=== PATIENT | female | born 1965 ===

== ENCOUNTER 2021-05-15 13:23 | Inpatient (IN) | payer OTHER ==
[2021-05-15] MEDS ORDERED: Sodium Chloride 0.9% 10 ML Syringe FLUSH PRN ×2 (13:35→13:36)
[2021-05-15] MEDS ORDERED: Sodium Chloride 0.9% 2.5 ML Syringe FLUSH PRN ×2 (13:35→13:36)
--- NOTE | 2021-05-15 13:37 | EDM.PDOC ---
ED HPI GENERAL MEDICAL PROBLEM - General Chief Complaint: Respiratory Problem Stated Complaint: HAVING TROUBLE BREATHING Time Seen by Provider: 05/15/21 13:36 - History of Present Illness INITIAL COMMENTS - FREE TEXT/NARRATIVE: History of present illness: [] This is patient's 11 days of illness. She has shortness of breath fever and feels weak. She has body aches. She has no vomiting or diarrhea. She has no history of respiratory trouble in the past. The patient developed symptoms on 04 May 2021. Earlier this week she had a Covid positive. She is not vaccinated. She did not receive monoclonal antibodies. Review of systems: As per history of present illness and below otherwise all systems reviewed and negative. Past medical history: As per history of present illness and as reviewed below otherwise nonc ontributory. Surgical history: As per history of present illness and as reviewed below otherwise noncontributory. Social history: No reported history of drug or alcohol abuse. Family history: As per history of present illness and as reviewed below otherwise noncontributory. Physical exam: Constitutional - well developed, well-nourished and in no acute distress HEENT - normocephalic, no evidence of trauma - external nose and mouth normal - no mass in neck and no JVD - mucosae moist EYES - full EOM, PERRL, no icterus - no evidence of inflammation, injection, or drainage Respiratory -oxygen saturation 77% on room [id number] respiratory distress, equal bilateral expansion, lungs rales and rhonchi throughout. Diminished breath sounds. Cardiovascular - Regular Rhythm with S1 and S2 appreciated and no murmur, gallop or rub. GI - abdomen soft without distension or organomegaly - normal bowel sounds - no guard or rebound Musculoskeletal no gross deformity of long bones or joints - no tenderness, swelling or edema Neurologic - Alert and oriented times four - CN II-XII grossly intact - motor sensory and coordination symmetrically normal Psychiatric - appropriate mood and affect with normal thought content Hematologic - No petechiae or purpura - mucosa appropriate color and sclera not pale - normal nail bed color and refill Integument - no rash or evidence of trauma - normal turgor Diagnostics: [] Therapeutics: [] Impression: [] Plan: [] Definitive disposition and diagnosis as appropriate pending reevaluation and review of above. - Related Data Allergies Allergy/AdvReac Type Severity Reaction Status Date / Time No Known Allergies Allergy Verified 05/15/21 13:40 Home Meds: Home Meds ARIPiprazole [Abilify] 05/15/21 [History] Albuterol Sulfate [Proair Hfa] 8.5 gm IH 05/15/21 [History] clonazePAM [Clonazepam] 1 mg PO 05/15/21 [History] ED ROS GENERAL - Review of Systems Review Of Systems: Comprehensive ROS is negative, except as noted in HPI. ED EXAM, GENERAL - Physical Exam Exam: See Below Free Text/Narrative:: My physical exam is in the HPI #1 Interpretation EKG Interpretation Comments: EKG performed 05/15/2021 at 1:27 PM shows a sinus tachycardia with a heart rate of 119 and SD interval of 178 QT duration 451 [place] XX 8. She has minimal ST depression and some ventricular premature complexes. Impression no acute injury Course - Vital Signs Last Recorded V/S: Last Vital Signs Temp 36.8 C 05/15/21 13:34 Pulse 100 05/15/21 14:44 Resp 24 H 05/15/21 14:44 BP 117/60 05/15/21 14:44 Pulse Ox 96 05/15/21 14:44 - Orders/Labs/Meds Orders: Active Orders 24 hr Category Date Time Status Admission Status [Patient Status] [ADT] Stat ADT 05/15/21 15:13 Ordered Cardiac Monitoring [RC] . DIRECTED Care 05/15/21 13:36 Active Cardiac Monitoring [RC] . DIRECTED Care 05/15/21 15:13 Ordered Oxygen Therapy, ED [RC] ASDIRECTED Care 05/15/21 13:36 Active RT Aerosol Therapy [RC] ASDIRECTED Care 05/15/21 13:48 Active BILIRUBIN DIRECT [CHEM] Stat Lab 05/15/21 15:13 Ordered CULTURE BLOOD [BC] Stat Lab 05/15/21 13:35 Received CULTURE BLOOD [BC] Stat Lab 05/15/21 13:53 Received Remdesivir 100 mg Med 05/16/21 15:15 Ordered Sodium Chloride 0.9% [Normal Saline AdvBag] 100 ml IV Q24H Sodium Chloride 0.9% [Saline Flush] Med 05/15/21 13:35 Active 10 ml FLUSH ASDIRECTED PRN Sodium Chloride 0.9% [Saline Flush] Med 05/15/21 13:36 Active 10 ml FLUSH ASDIRECTED PRN Sodium Chloride 0.9% [Saline Flush] Med 05/15/21 13:35 Active 2.5 ml FLUSH ASDIRECTED PRN Sodium Chloride 0.9% [Saline Flush] Med 05/15/21 13:36 Active 2.5 ml FLUSH ASDIRECTED PRN dexAMETHasone Med 05/16/21 09:00 Ordered 6 mg PO DAILY Blood Culture x2 Reflex Set [OM.PC] Stat Oth 05/15/21 13:35 Ordered Saline Lock Insert [OM.PC] Stat Ot 05/15/21 13:35 Ordered Saline Lock Insert [OM.PC] Stat Ot 05/15/21 13:36 Ordered Medication Orders Dexamethasone (Dexamethasone 4 Mg Tab) 6 mg PO DAILY SANJU Remdesivir 100 mg/ Sodium (Chloride) 100 mls @ 100 mls/hr IV Q24H SANJU Stop: 05/19/21 16:14 Sodium Chloride (Sodium Chloride 0.9% 10 Ml Syringe) 10 ml FLUSH ASDIRECTED PRN PRN Reason: Keep Vein Open Last Admin: 05/15/21 14:00 Dose: 10 ml Documented by: TIMOTHY Sodium Chloride (Sodium Chloride 0.9% 2.5 Ml Syringe) 2.5 ml FLUSH ASDIRECTED PRN PRN Reason: Keep Vein Open Last Admin: 05/15/21 14:00 Dose: 2.5 ml Documented by: TIMOTHY Sodium Chloride (Sodium Chloride 0.9% 10 Ml Syringe) 10 ml FLUSH ASDIRECTED PRN PRN Reason: Keep Vein Open Last Admin: 05/15/21 14:01 Dose: 10 ml Documented by: TIMOTHY Sodium Chloride (Sodium Chloride 0.9% 2.5 Ml Syringe) 2.5 ml FLUSH ASDIRECTED PRN PRN Reason: Keep Vein Open Last Admin: 05/15/21 14:01 Dose: 2.5 ml Documented by: TIMOTHY Labs: Laboratory Tests 05/15/21 05/15/21 05/15/21 Range/Units 13:30 13:30 13:30 WBC 14.64 H (4.0-11.0) K/uL RBC 5.97 H (4.30-5.90) M/uL Hgb 12.8 (12.0-16.0) g/dL Hct 41.9 (36.0-46.0) % MCV 70.2 L (80.0-98.0) fL MCH 21.4 L (27.0-32.0) pg MCHC 30.5 L (31.0-37.0) g/dL RDW Std Deviation 49.5 (28.0-62.0) fl RDW Coeff of Erma 20 H (11.0-15.0) % Plt Count 440 H (150-400) K/uL MPV 10.20 (7.40-12.00) fL Neut % (Auto) 77.5 (48.0-80.0) % Lymph % (Auto) 18.7 (16.0-40.0) % [place] % (Auto) 3.6 (0.0-15.0) % Eos % (Auto) 0.0 (0.0-7.0) % Baso % (Auto) 0.2 (0.0-1.5) % Neut # (Auto) 11.3 H (1.4-5.7) K/uL Lymph # (Auto) 2.7 H (0.6-2.4) K/uL [place] # (Auto) 0.5 (0.0-0.8) K/uL Eos # (Auto) 0.0 (0.0-0.7) K/uL Baso # (Auto) 0.0 (0.0-0.1) K/uL Nucleated RBC % 0.0 /100WBC Nucleated RBCs # 0 K/uL ABG pH (7.35-7.45) ABG pCO2 (35-45) mmHG ABG pO2 (80-105) mmHG ABG HCO3 (22-26) mEq/L ABG Total CO2 (23-27) mmol/L ABG Base Excess (-2.0-3.0) Sodium 137 (136-145) mmol/L Potassium 4.5 (3.5-5.1) mmol/L Chloride 98 (98-107) mmol/L Carbon Dioxide 26.7 (21.0-32.0) mmol/L BUN 24 H (7.0-18.0) mg/dL Creatinine 1.0 (0.6-1.0) mg/dL Est Cr Clr Drug Dosing 9.00 mL/min Estimated GFR (MDRD) 57.4 ml/min Glucose 86 (74-106) mg/dL Lactic Acid 1.1 (0.4-2.0) mmol/L Calcium 10.0 (8.5-10.1) mg/dL Magnesium 2.4 (1.8-2.4) mg/dL Total Bilirubin 0.3 (0.2-1.0) mg/dL AST 76 H (15-37) IU/L ALT 61 (14-63) IU/L Alkaline Phosphatase 193 H (46-116) U/L Troponin I <0.050 (0.000-0.056) ng/mL Total Protein 8.5 H (6.4-8.2) g/dL Albumin 3.5 (3.4-5.0) g/dL Globulin 5.0 H (2.6-4.0) g/dL Albumin/Globulin Ratio 0.7 L (0.9-1.6) Influenza Type A RNA (NEGATIVE) Influenza Type B RNA (NEGATIVE) SARS-CoV-2 RNA (IKE) (NEGATIVE) 05/15/21 05/15/21 Range/Units 14:06 14:25 WBC (4.0-11.0) K/uL RBC (4.30-5.90) M/uL Hgb (12.0-16.0) g/dL Hct (36.0-46.0) % MCV (80.0-98.0) fL MCH (27.0-32.0) pg MCHC (31.0-37.0) g/dL RDW Std Deviation (28.0-62.0) fl RDW Coeff of Erma (11.0-15.0) % Plt Count (150-400) K/uL MPV (7.40-12.00) fL Neut % (Auto) (48.0-80.0) % Lymph % (Auto) (16.0-40.0) % [place] % (Auto) (0.0-15.0) % Eos % (Auto) (0.0-7.0) % Baso % (Auto) (0.0-1.5) % Neut # (Auto) (1.4-5.7) K/uL Lymph # (Auto) (0.6-2.4) K/uL [place] # (Auto) (0.0-0.8) K/uL Eos # (Auto) (0.0-0.7) K/uL Baso # (Auto) (0.0-0.1) K/uL Nucleated RBC % /100WBC Nucleated RBCs # K/uL ABG pH 7.46 H (7.35-7.45) ABG pCO2 37 (35-45) mmHG ABG pO2 74 L (80-105) mmHG ABG HCO3 27 H (22-26) mEq/L ABG Total CO2 24.1 (23-27) mmol/L ABG Base Excess 2.7 (-2.0-3.0) Sodium (136-145) mmol/L Potassium (3.5-5.1) mmol/L Chloride (98-107) mmol/L Carbon Dioxide (21.0-32.0) mmol/L BUN (7.0-18.0) mg/dL Creatinine (0.6-1.0) mg/dL Est Cr Clr Drug Dosing mL/min Estimated GFR (MDRD) ml/min Glucose (74-106) mg/dL Lactic Acid (0.4-2.0) mmol/L Calcium (8.5-10.1) mg/dL Magnesium (1.8-2.4) mg/dL Total Bilirubin (0.2-1.0) mg/dL AST (15-37) IU/L ALT (14-63) IU/L Alkaline Phosphatase (46-116) U/L Troponin I (0.000-0.056) ng/mL Total Protein (6.4-8.2) g/dL Albumin (3.4-5.0) g/dL Globulin (2.6-4.0) g/dL Albumin/Globulin Ratio (0.9-1.6) Influenza Type A RNA NEGATIVE (NEGATIVE) Influenza Type B RNA NEGATIVE (NEGATIVE) SARS-CoV-2 RNA (IKE) POSITIVE H (NEGATIVE) Meds: Medications Generic Name Dose Route Start Last Admin Trade Name Freq PRN Reason Stop Dose Admin Dexamethasone 6 mg 05/16/21 09:00 Dexamethasone 4 Mg Tab PO DAILY SANJU Remdesivir 100 mg/ Sodium 100 mls @ 100 mls/hr 05/16/21 15:15 Chloride IV 05/19/21 16:14 Q24H SANJU Sodium Chloride 10 ml 05/15/21 13:35 05/15/21 14:00 Sodium Chloride 0.9% 10 Ml Syringe FLUSH 10 ml ASDIRECTED PRN Administration Keep Vein Open Sodium Chloride 2.5 ml 05/15/21 13:35 05/15/21 14:00 Sodium Chloride 0.9% 2.5 Ml Syringe FLUSH 2.5 ml ASDIRECTED PRN Administration Keep Vein Open Sodium Chloride 10 ml 05/15/21 13:36 05/15/21 14:01 Sodium Chloride 0.9% 10 Ml Syringe FLUSH 10 ml ASDIRECTED PRN Administration Keep Vein Open Sodium Chloride 2.5 ml 05/15/21 13:36 05/15/21 14:01 Sodium Chloride 0.9% 2.5 Ml Syringe FLUSH 2.5 ml ASDIRECTED PRN Administration Keep Vein Open Discontinued Medications Generic Name Dose Route Start Last Admin Trade Name Freq PRN Reason Stop Dose Admin Albuterol/Ipratropium 3 ml 05/15/21 13:48 05/15/21 13:53 Albuterol/Ipratropium 3.0-0.5 Mg/3 Ml Neb Soln NEB 05/15/21 13:49 3 ml ONETIME ONE Administration Remdesivir 200 mg/ Sodium 250 mls @ 250 mls/hr 05/15/21 15:12 Chloride IV 05/15/21 15:13 ONETIME ONE Remdesivir 200 mg/ Sodium 250 mls @ 250 mls/hr 05/15/21 15:12 Chloride IV 05/15/21 15:13 ONETIME ONE Methylprednisolone Sodium Succinate 125 mg 05/15/21 13:48 05/15/21 13:53 Methylprednisolone Sodium Succinate 125 Mg/2 Ml Sdv IVPUSH 05/15/21 13:49 125 mg ONETIME ONE Administration - Re-Assessments/Exams Free Text/Narrative Re-Assessment/Exam: 05/15/21 13:56 Patient has an oxygen saturation of 94 to 95% on high flow nasal cannula at 50 psi, 50% FiO2, 31 degree temperature 05/15/21 15:14 Patient was stable but not improved much. She is tolerating high flow nasal cannula and her saturations are good. Discussed with Dr. German Estrella and admitted. Due to a high probability of clinically significant, life threatening deterioration, the patient required my highest level of preparedness to intervene emergently and I personally spent this critical care time directly and personally managing the patient. This critical care time included obtaining a history; examining the patient; pulse oximetry; ordering and review of studies; arranging urgent treatment with development of a management plan; evaluation of patient's response to treatment; frequent reassessment; and, discussions with other providers. This critical care time was performed to assess and manage the high probability of imminent, life-threatening deterioration that could result in multi-organ failure. It was exclusive of separately billable procedures and treating other patients and teaching time. 45 minutes Departure - Departure Time of Disposition: 15:15 Disposition: Admitted As Inpatient 66 Condition: Fair Clinical Impression: Pneumonia due to COVID-19 virus, Respiratory failure with hypoxia - Discharge Information Forms: ED Department Discharge Sepsis Event Note (ED) - Focused Exam Vital Signs: Vital Signs Temp Pulse Resp BP Pulse Ox 05/15/21 14:44 100 24 H 117/60 96 05/15/21 13:34 36.8 C 111 H 26 H 130/59 L 77 L - My Orders Last 24 Hours: My Active Orders 05/15/21 13:48 RT Aerosol Therapy [RC] ASDIRECTED 05/15/21 15:13 Admission Status [Patient Status] [ADT] Stat Cardiac Monitoring [RC] . DIRECTED BILIRUBIN DIRECT [CHEM] Stat - Assessment/Plan Last 24 Hours: My Active Orders 05/15/21 13:48 RT Aerosol Therapy [RC] ASDIRECTED 05/15/21 15:13 Admission Status [Patient Status] [ADT] Stat Cardiac Monitoring [RC] . DIRECTED BILIRUBIN DIRECT [CHEM] Stat
[2021-05-15] MEDS ORDERED: methylPREDNISolone Sodium Succinate 125 MG/2 ML SDV IVPUSH ONE (13:48)
[2021-05-15] MEDS ORDERED: Albuterol/Ipratropium 3.0-0.5 MG/3 ML Neb Soln NEB ONE (13:48)
[2021-05-15 14:15] LABS: BLOOD UREA NITROGEN,BUN 24 mg/dL (7.0-18.0); CARBON DIOXIDE,CO2 26.7 mmol/L (21.0-32.0); CHLORIDE,CL 98 mmol/L (98-107); GLUCOSE RANDOM 86 mg/dL (74-106); POTASSIUM,K 4.5 mmol/L (3.5-5.1); SODIUM,NA 137 mmol/L (136-145)
--- NOTE | 2021-05-15 14:33 | CR ---
Indication: Fever Technique: Portable chest Comparison: No comparison Findings: Low lung volumes. Normal cardiac mediastinal silhouette. Bilateral interstitial opacities could an represent infectious or inflammatory process to include atypical infections. No effusion. No pneumothorax. Dictated by Farhana Hammond MD @ 05/15/2021 2:31:11 PM (Electronically Signed)
[2021-05-15 14:55] LABS: CORONAVIRUS COVID-19 NAA POSITIVE (NEGATIVE); INFLUENZA A NAA NEGATIVE (NEGATIVE); INFLUENZA B NAA NEGATIVE (NEGATIVE)
[2021-05-15] MEDS ORDERED: REMDESIVIR 200 MG in Sodium Chloride 0.9% 250 ML IV ONE ×2 (15:12)
--- NOTE | 2021-05-15 15:47 | PCM.HP.2 ---
H&P History of Present Illness - General Date of Service: 05/15/21 Admit Problem/Dx: Admission Diagnosis/Problem Admission Diagnosis/Problem Hypoxia - History of Present Illness Initial Comments - Free Text/Narative: 56 yo female who presents with ten days of shortness of breath, cough and fevers. She reports testing positive for COVID seven days ago. She has completed a course of ivermectin and dexamethasone. She has not been vaccinated. She was noted to be sating 70% on room air and is requiring high fl ow NC to keep sats above 90%. CXR reports bilateral infiltrates. - Related Data Allergies/Adverse Reactions: Allergies Allergy/AdvReac Type Severity Reaction Status Date / Time No Known Allergies Allergy Verified 05/15/21 13:40 Home Medications: Home Meds ARIPiprazole [Abilify] 05/15/21 [History] Albuterol Sulfate [Proair Hfa] 8.5 gm IH 05/15/21 [History] clonazePAM [Clonazepam] 1 mg PO 05/15/21 [History] Social & Family History - Tobacco Use Second Hand Smoke Exposure: No - Caffeine Use Caffeine Use: Reports: None - Recreational Drug Use Recreational Drug Use: No H&P Review of Systems - Review of Systems: Review Of Systems: Comprehensive ROS is negative, except as noted in HPI. Exam - Exam Exam: See Below - Vital Signs Vital Signs: Last Vital Signs Temp 36.8 C 05/15/21 13:34 Pulse 93 05/15/21 15:03 Resp 24 H 05/15/21 14:44 BP 113/68 05/15/21 15:03 Pulse Ox 96 05/15/21 15:03 Weight: 96 kg - Exam General: Alert, Oriented HEENT: Mucosa Moist & [place] Lungs: Normal Respiratory Effort, Rhonchi Cardiovascular: Regular Rate, Regular Rhythm GI/Abdominal Exam: Normal Bowel Sounds, Soft, Non-Tender Extremities: Non-Tender, No Pedal Edema Skin: Warm, Dry, Intact Neurological: Cranial Nerves Intact. No: Focal Deficit - Patient Data Lab Results Last 24 hrs: Laboratory Results - last 24 hr 05/15/21 05/15/21 05/15/21 Range/Units 13:30 13:30 13:30 WBC 14.64 H (4.0-11.0) K/uL RBC 5.97 H (4.30-5.90) M/uL Hgb 12.8 (12.0-16.0) g/dL Hct 41.9 (36.0-46.0) % MCV 70.2 L (80.0-98.0) fL MCH 21.4 L (27.0-32.0) pg MCHC 30.5 L (31.0-37.0) g/dL RDW Std Deviation 49.5 (28.0-62.0) fl RDW Coeff of Erma 20 H (11.0-15.0) % Plt Count 440 H (150-400) K/uL MPV 10.20 (7.40-12.00) fL Neut % (Auto) 77.5 (48.0-80.0) % Lymph % (Auto) 18.7 (16.0-40.0) % [place] % (Auto) 3.6 (0.0-15.0) % Eos % (Auto) 0.0 (0.0-7.0) % Baso % (Auto) 0.2 (0.0-1.5) % Neut # (Auto) 11.3 H (1.4-5.7) K/uL Lymph # (Auto) 2.7 H (0.6-2.4) K/uL [place] # (Auto) 0.5 (0.0-0.8) K/uL Eos # (Auto) 0.0 (0.0-0.7) K/uL Baso # (Auto) 0.0 (0.0-0.1) K/uL Nucleated RBC % 0.0 /100WBC Nucleated RBCs # 0 K/uL ABG pH (7.35-7.45) ABG pCO2 (35-45) mmHG ABG pO2 (80-105) mmHG ABG HCO3 (22-26) mEq/L ABG Total CO2 (23-27) mmol/L ABG Base Excess (-2.0-3.0) Sodium 137 (136-145) mmol/L Potassium 4.5 (3.5-5.1) mmol/L Chloride 98 (98-107) mmol/L Carbon Dioxide 26.7 (21.0-32.0) mmol/L BUN 24 H (7.0-18.0) mg/dL Creatinine 1.0 (0.6-1.0) mg/dL Est Cr Clr Drug Dosing 9.00 mL/min Estimated GFR (MDRD) 57.4 ml/min Glucose 86 (74-106) mg/dL Lactic Acid 1.1 (0.4-2.0) mmol/L Calcium 10.0 (8.5-10.1) mg/dL Magnesium 2.4 (1.8-2.4) mg/dL Total Bilirubin 0.3 (0.2-1.0) mg/dL Direct Bilirubin (0.0-0.5) mg/dL AST 76 H (15-37) IU/L ALT 61 (14-63) IU/L Alkaline Phosphatase 193 H (46-116) U/L Troponin I <0.050 (0.000-0.056) ng/mL Total Protein 8.5 H (6.4-8.2) g/dL Albumin 3.5 (3.4-5.0) g/dL Globulin 5.0 H (2.6-4.0) g/dL Albumin/Globulin Ratio 0.7 L (0.9-1.6) Influenza Type A RNA (NEGATIVE) Influenza Type B RNA (NEGATIVE) SARS-CoV-2 RNA (IKE) (NEGATIVE) 05/15/21 05/15/21 05/15/21 Range/Units 13:30 14:06 14:25 WBC (4.0-11.0) K/uL RBC (4.30-5.90) M/uL Hgb (12.0-16.0) g/dL Hct (36.0-46.0) % MCV (80.0-98.0) fL MCH (27.0-32.0) pg MCHC (31.0-37.0) g/dL RDW Std Deviation (28.0-62.0) fl RDW Coeff of Erma (11.0-15.0) % Plt Count (150-400) K/uL MPV (7.40-12.00) fL Neut % (Auto) (48.0-80.0) % Lymph % (Auto) (16.0-40.0) % [place] % (Auto) (0.0-15.0) % Eos % (Auto) (0.0-7.0) % Baso % (Auto) (0.0-1.5) % Neut # (Auto) (1.4-5.7) K/uL Lymph # (Auto) (0.6-2.4) K/uL [place] # (Auto) (0.0-0.8) K/uL Eos # (Auto) (0.0-0.7) K/uL Baso # (Auto) (0.0-0.1) K/uL Nucleated RBC % /100WBC Nucleated RBCs # K/uL ABG pH 7.46 H (7.35-7.45) ABG pCO2 37 (35-45) mmHG ABG pO2 74 L (80-105) mmHG ABG HCO3 27 H (22-26) mEq/L ABG Total CO2 24.1 (23-27) mmol/L ABG Base Excess 2.7 (-2.0-3.0) Sodium (136-145) mmol/L Potassium (3.5-5.1) mmol/L Chloride (98-107) mmol/L Carbon Dioxide (21.0-32.0) mmol/L BUN (7.0-18.0) mg/dL Creatinine (0.6-1.0) mg/dL Est Cr Clr Drug Dosing mL/min Estimated GFR (MDRD) ml/min Glucose (74-106) mg/dL Lactic Acid (0.4-2.0) mmol/L Calcium (8.5-10.1) mg/dL Magnesium (1.8-2.4) mg/dL Total Bilirubin (0.2-1.0) mg/dL Direct Bilirubin 0.10 (0.0-0.5) mg/dL AST (15-37) IU/L ALT (14-63) IU/L Alkaline Phosphatase (46-116) U/L Troponin I (0.000-0.056) ng/mL Total Protein (6.4-8.2) g/dL Albumin (3.4-5.0) g/dL Globulin (2.6-4.0) g/dL Albumin/Globulin Ratio (0.9-1.6) Influenza Type A RNA NEGATIVE (NEGATIVE) Influenza Type B RNA NEGATIVE (NEGATIVE) SARS-CoV-2 RNA (IKE) POSITIVE H (NEGATIVE) Result Diagrams: 05/15/21 13:30 05/15/21 13:30 Sepsis Event Note - Evaluation Sepsis Screening Result: No Definite Risk - Focused Exam Vital Signs: Vital Signs Temp Pulse Resp BP Pulse Ox 05/15/21 15:03 93 113/68 96 05/15/21 14:46 98 117/60 96 05/15/21 14:44 100 24 H 117/60 96 05/15/21 13:34 36.8 C 111 H 26 H 130/59 L 77 L - Problem List (1) Pneumonia due to COVID-19 virus SNOMED Code(s): 828921950259376598 ICD Code: U07.1 - COVID-19; J12.82 - PNEUMONIA DUE TO CORONAVIRUS DISEASE 2019 Status: Acute Current Visit: Yes (2) Respiratory failure with hypoxia SNOMED Code(s): 91224258947089880 ICD Code: J96.91 - RESPIRATORY FAILURE, UNSPECIFIED WITH HYPOXIA Status: Acute Current Visit: Yes Problem List Initiated/Reviewed/Updated: Yes Orders Last 24hrs: Active Orders 24 hr Category Date Time Status Admission Status [Patient Status] [ADT] Stat ADT 05/15/21 15:13 Active Antiembolic Devices [RC] PER UNIT ROUTINE Care 05/15/21 15:17 Ordered Cardiac Monitoring [RC] . DIRECTED Care 05/15/21 13:36 Active Cardiac Monitoring [RC] . DIRECTED Care 05/15/21 15:13 Active Oxygen Therapy [RC] PRN Care 05/15/21 15:16 Ordered Oxygen Therapy, ED [RC] ASDIRECTED Care 05/15/21 13:36 Active RT Aerosol Therapy [RC] ASDIRECTED Care 05/15/21 13:48 Active RT Post Treatment Assessment [RC] Click to Edit Care 05/15/21 15:16 Ordered RT Pre-Treatment Assessment [RC] Click to Edit Care 05/15/21 15:16 Ordered Up ad Veronica [RC] ASDIRECTED Care 05/15/21 15:16 Ordered VTE/DVT Education [RC] PER UNIT ROUTINE Care 05/15/21 15:16 Ordered Vital Signs [RC] Q4H Care 05/15/21 15:16 Ordered Regular Diet [DIET] Diet 05/15/21 Breakfast Ordered PE Chest [Ang Chest] [CT] Stat Exams 05/15/21 15:17 Ordered CBC WITH AUTO DIFF [HEME] AM Lab 05/16/21 05:11 Ordered CBC WITH AUTO DIFF [HEME] AM Lab 05/17/21 05:11 Ordered CBC WITH AUTO DIFF [HEME] AM Lab 05/18/21 05:11 Ordered CBC WITH AUTO DIFF [HEME] AM Lab 05/19/21 05:11 Ordered CBC WITH AUTO DIFF [HEME] AM Lab 05/20/21 05:11 Ordered COMPREHENSIVE METABOLIC PN,CMP [CHEM] AM Lab 05/16/21 05:11 Ordered COMPREHENSIVE METABOLIC PN,CMP [CHEM] AM Lab 05/17/21 05:11 Ordered COMPREHENSIVE METABOLIC PN,CMP [CHEM] AM Lab 05/18/21 05:11 Ordered COMPREHENSIVE METABOLIC PN,CMP [CHEM] AM Lab 05/19/21 05:11 Ordered COMPREHENSIVE METABOLIC PN,CMP [CHEM] AM Lab 05/20/21 05:11 Ordered CRP, HIGH SENSITIVITY [REF] Stat Lab 05/15/21 15:15 Ordered CULTURE BLOOD [BC] Stat Lab 05/15/21 13:35 Received CULTURE BLOOD [BC] Stat Lab 05/15/21 13:53 Received PROCALCITONIN [REF] Routine Lab 05/15/21 15:15 Ordered Albuterol/Ipratropium [Combivent Respimat] Med 05/15/21 15:15 Ordered 1 gm INH Q4H PRN Benzonatate [Tessalon Perles] Med 05/15/21 15:15 Ordered 100 mg PO Q6H PRN Enoxaparin [Lovenox] Med 05/15/21 15:15 Ordered 40 mg SUBCUT Q24H Remdesivir 100 mg Med 05/16/21 15:15 Ordered Sodium Chloride 0.9% [Normal Saline AdvBag] 100 ml IV Q24H Sodium Chloride 0.9% [Saline Flush] Med 05/15/21 13:35 Active 10 ml FLUSH ASDIRECTED PRN Sodium Chloride 0.9% [Saline Flush] Med 05/15/21 13:36 Active 10 ml FLUSH ASDIRECTED PRN Sodium Chloride 0.9% [Saline Flush] Med 05/15/21 13:35 Active 2.5 ml FLUSH ASDIRECTED PRN Sodium Chloride 0.9% [Saline Flush] Med 05/15/21 13:36 Active 2.5 ml FLUSH ASDIRECTED PRN dexAMETHasone Med 05/16/21 09:00 Ordered 6 mg PO DAILY Blood Culture x2 Reflex Set [OM.PC] Stat Oth 05/15/21 13:35 Ordered Saline Lock Insert [OM.PC] Stat Oth 05/15/21 13:35 Ordered Saline Lock Insert [OM.PC] Stat Oth 05/15/21 13:36 Ordered Sequential Compression Device [OM.PC] Per Unit Routine Oth 05/15/21 15:17 Ordered Resuscitation Status Routine Resus Stat 05/15/21 15:16 Ordered Medication Orders Albuterol/Ipratropium (Albuterol/Ipratropium 4 Gm Inhalation Carlos) 1 gm INH Q4H PRN PRN Reason: Dyspnea Benzonatate (Benzonatate 100 Mg Cap) 100 mg PO Q6H PRN PRN Reason: Cough Dexamethasone (Dexamethasone 4 Mg Tab) 6 mg PO DAILY SANJU Enoxaparin Sodium (Enoxaparin 40 Mg/0.4 Ml Syringe) 40 mg SUBCUT Q24H SANJU Remdesivir 100 mg/ Sodium (Chloride) 100 mls @ 100 mls/hr IV Q24H SANJU Stop: 05/19/21 16:14 Sodium Chloride (Sodium Chloride 0.9% 10 Ml Syringe) 10 ml FLUSH ASDIRECTED PRN PRN Reason: Keep Vein Open Last Admin: 05/15/21 14:00 Dose: 10 ml Documented by: TIMOTHY Sodium Chloride (Sodium Chloride 0.9% 2.5 Ml Syringe) 2.5 ml FLUSH ASDIRECTED PRN PRN Reason: Keep Vein Open Last Admin: 05/15/21 14:00 Dose: 2.5 ml Documented by: TIMOTHY Sodium Chloride (Sodium Chloride 0.9% 10 Ml Syringe) 10 ml FLUSH ASDIRECTED PRN PRN Reason: Keep Vein Open Last Admin: 05/15/21 14:01 Dose: 10 ml Documented by: TIMOTHY Sodium Chloride (Sodium Chloride 0.9% 2.5 Ml Syringe) 2.5 ml FLUSH ASDIRECTED PRN PRN Reason: Keep Vein Open Last Admin: 05/15/21 14:01 Dose: 2.5 ml Documented by: TIMOTHY Assessment/Plan Comment:: 56 yo female admitted with COVID-19 with acute hypoxic respiratory failure. Hypoxia: on [facility], will check CT scan of chest COVID-19: treating with remdesivir, dexamethasone, and baricitinib. I expla ined the FDA EUA on baricitinib and patient has consented to its use. lovenox for DVT prophylaxis
[2021-05-15] MEDS: Enoxaparin 40 MG/0.4 ML Syringe SUBCUT SCH (16:01)
[2021-05-15] MEDS ORDERED: Iopamidol 755 MG/ML 500 ML Multipack Bottle IVPUSH ONE (17:30)
--- NOTE | 2021-05-15 17:53 | PN ---
THC Physician - Brief Progress [id number]/09/2022 16:54[facility] [place] Oxana Matthews, REINALDO - QUYEN (DESIRE) - THERON RODRIGUEZDate of Service 05/15/2021 16:54HPI/Events o f Note eICU admission [id number] female currently admitted to the ICU for acute hypoxic respirat ory failure secondary to COVID-19. Patient was diagnosed approximately 1 week prior and completed st eroids and ivermectin as an outpatient but was noted to be hypoxic on room air thus presented to the ED for further evaluation. On arrival to the ED patient was noted to be hypoxic requiring high flow nasal cannula. Chest x-ray revealed bilateral infiltrates and labs were significant for leukocytosis . Patient was initiated on dexamethasone, remdesivir and baricitinib with admission to the ICU for f urther management.Patient seen on camera, sitting up in bed, does not appear to be in acute distress at this time but does appear tachypneicVital signs reviewedLabs/EMR reviewedAcute hypoxic respiratory failureCOVID-19 pneumoniaRecommendations-Agree with ongoing management of COVID-19 with steroids, re mdesivir and baricitinib to complete course-Recommend low threshold to initiate antibiotics and obtai n procalcitonin if patient develops further SIRS criteria. Leukocytosis likely related to outpatient steroid use. -Recommend self prone as tolerated-Recommend keeping patient as euvolemic as much as po ssible-Agree with DVT prophylaxis-CT PE protocol currently ordered and pendingThank you for allowing us to participate in the care of this patient. Please do not hesitate to contact [facility] for any questio ns, clarification or assistance with implementation of above.Interventions Major-Hypoxemia - evaluati on and management, Infection - evaluation and management, Respiratory failure - evaluation and manage ment
--- NOTE | 2021-05-15 17:57 | CT ---
INDICATION: Hypoxia, COVID COMPARISON: Chest x-ray 05/15/2021 TECHNIQUE: CT volumetric acquisition was performed of the thorax during intravenous infusion of 100 cc Isovue 370 nonionic intravenous contrast. Please note that all CT scans at this facility use dose modulation, iterative reconstruction, and/or weight-based dosing when appropriate to reduce radiation dose to as low as reasonably achievable. FINDINGS: Thoracic inlet normal. No aortic dissection or aneurysm. No pulmonary embolism. Mediastinal and bilateral hilar adenopathy. Upper abdomen unremarkable. Bilateral ground-glass densities with crazy paving. No pneumothorax or pleural effusion. Mild dependent atelectasis. IMPRESSION: No evidence of pulmonary thromboembolism. Bilateral COVID infiltrates with reactive mediastinal and hilar adenopathy. Please note that all CT scans at this facility use dose modulation, iterative reconstruction, and/or weight-based dosing when appropriate to reduce radiation dose to as low as reasonably achievable. Dictated by Star Moreno MD @ 05/15/2021 5:55:32 PM (Electronically Signed)
[2021-05-15] MEDS: Benzonatate 100 MG Cap PO PRN (20:18)
[2021-05-15] MEDS: Albuterol/Ipratropium 4 GM Inhalation Spray INH PRN (20:18)
--- NOTE | 2021-05-15 20:58 | PN ---
THC Physician - Brief Progress [id number]/09/2022 20:56[facility] Oxana thompson, REINALDO - QUYEN (DESRIE) - THERON RODRIGUEZDate of Service 05/15/2021 20:56HPI/Events o f Note eICU on-callPatient requesting to resume her home medication:-Clonazepam 1 mg at night-Benadry l 50 mg at nightShe is also requesting antitussive medication prescribed guaifenesin DM as needed for coughInterventions Intermediate-Other: Medication reconciliation
[2021-05-15] MEDS: diphenhydrAMINE 50 MG Cap PO SCH (22:41)
[2021-05-15] MEDS: ClonazePAM 1 MG Tab PO SCH (22:41)
[2021-05-16] MEDS: ClonazePAM 1 MG Tab PO SCH ×2 (04:27→20:36)
[2021-05-16] MEDS: guaiFENesin/Dextromethorphan 100-10 MG/5 ML Soln 10 ML Cup PO PRN ×3 (04:28→17:32)
[2021-05-16 05:10] LABS: BLOOD UREA NITROGEN,BUN 24 mg/dL (7.0-18.0); CARBON DIOXIDE,CO2 27.1 mmol/L (21.0-32.0); CHLORIDE,CL 99 mmol/L (98-107); GLUCOSE RANDOM 137 mg/dL (74-106); POTASSIUM,K 4.1 mmol/L (3.5-5.1); SODIUM,NA 135 mmol/L (136-145)
[2021-05-16] MEDS: Dexamethasone 4 MG Tab PO SCH (08:08)
[2021-05-16] MEDS: Albuterol/Ipratropium 4 GM Inhalation Spray INH PRN (08:19)
[2021-05-16] MEDS: Benzonatate 100 MG Cap PO PRN (08:20)
--- NOTE | 2021-05-16 13:53 | PCM.PN ---
- General Info Date of Service: 05/16/21 Admission Dx/Problem (Free Text): Admission Diagnosis/Problem Admission Diagnosis/Problem Hypoxia Subjective Update: 56-year-old female admitted for respiratory failure secondary to COVID pneumonia. No overnight events, remains on high flow nasal cannula FiO2 50%. Patient states she is tired, however denies any shortness of breath, resting comfortably in bed enjoying her breakfast. Functional Status: Reports: Tolerating Diet, Incentive Spirometry - Review of Systems General: Reports: No Symptoms HEENT: Reports: No Symptoms Pulmonary: Reports: Cough (Intermittent) Cardiovascular: Reports: No Symptoms Gastrointestinal: Reports: No Symptoms Genitourinary: Reports: No Symptoms Musculoskeletal: Reports: No Symptoms Skin: Reports: No Symptoms Neurological: Reports: No Symptoms Psychiatric: Reports: No Symptoms - Patient Data Vitals - Most Recent: Last Vital Signs Temp 97.3 F 05/16/21 12:00 Pulse 80 05/15/21 19:00 Resp 17 05/16/21 13:00 BP 108/52 L 05/16/21 13:00 Pulse Ox 94 L 05/16/21 13:00 Weight - Most Recent: 194 lb 4.447 oz I&O - Last 24 Hours: Intake & Output 05/15/21 05/16/21 05/16/21 22:59 06:59 14:59 Intake Total 800 Output Total 1150 Balance -350 Lab Results Last 24 Hours: Laboratory Results - last 24 hr 05/15/21 05/15/21 05/15/21 Range/Units 13:30 13:30 13:30 WBC 14.64 H (4.0-11.0) K/uL RBC 5.97 H (4.30-5.90) M/uL Hgb 12.8 (12.0-16.0) g/dL Hct 41.9 (36.0-46.0) % MCV 70.2 L (80.0-98.0) fL MCH 21.4 L (27.0-32.0) pg MCHC 30.5 L (31.0-37.0) g/dL RDW Std Deviation 49.5 (28.0-62.0) fl RDW Coeff of Erma 20 H (11.0-15.0) % Plt Count 440 H (150-400) K/uL MPV 10.20 (7.40-12.00) fL Neut % (Auto) 77.5 (48.0-80.0) % Lymph % (Auto) 18.7 (16.0-40.0) % Mckean % (Auto) 3.6 (0.0-15.0) % Eos % (Auto) 0.0 (0.0-7.0) % Baso % (Auto) 0.2 (0.0-1.5) % Neut # (Auto) 11.3 H (1.4-5.7) K/uL Lymph # (Auto) 2.7 H (0.6-2.4) K/uL Mckean # (Auto) 0.5 (0.0-0.8) K/uL Eos # (Auto) 0.0 (0.0-0.7) K/uL Baso # (Auto) 0.0 (0.0-0.1) K/uL Add Manual Diff Neutrophils % (Manual) (48.0-80.0) % Band Neutrophils % % Lymphocytes % (Manual) (16.0-40.0) % Monocytes % (Manual) (0.0-15.0) % Nucleated RBC % 0.0 /100WBC Absolute Seg Neuts (1.4-5.7) Band Neutrophils # Lymphocytes # (Manual) (0.6-2.4) Monocytes # (Manual) (0.0-0.8) Nucleated RBCs # 0 K/uL ABG pH (7.35-7.45) ABG pCO2 (35-45) mmHG ABG pO2 (80-105) mmHG ABG HCO3 (22-26) mEq/L ABG Total CO2 (23-27) mmol/L ABG Base Excess (-2.0-3.0) Sodium 137 (136-145) mmol/L Potassium 4.5 (3.5-5.1) mmol/L Chloride 98 (98-107) mmol/L Carbon Dioxide 26.7 (21.0-32.0) mmol/L BUN 24 H (7.0-18.0) mg/dL Creatinine 1.0 (0.6-1.0) mg/dL Est Cr Clr Drug Dosing 9.00 mL/min Estimated GFR (MDRD) 57.4 ml/min Glucose 86 (74-106) mg/dL Lactic Acid 1.1 (0.4-2.0) mmol/L Calcium 10.0 (8.5-10.1) mg/dL Magnesium 2.4 (1.8-2.4) mg/dL Total Bilirubin 0.3 (0.2-1.0) mg/dL Direct Bilirubin (0.0-0.5) mg/dL AST 76 H (15-37) IU/L ALT 61 (14-63) IU/L Alkaline Phosphatase 193 H (46-116) U/L Troponin I <0.050 (0.000-0.056) ng/mL Total Protein 8.5 H (6.4-8.2) g/dL Albumin 3.5 (3.4-5.0) g/dL Globulin 5.0 H (2.6-4.0) g/dL Albumin/Globulin Ratio 0.7 L (0.9-1.6) Influenza Type A RNA (NEGATIVE) Influenza Type B RNA (NEGATIVE) SARS-CoV-2 RNA (IKE) (NEGATIVE) 05/15/21 05/15/21 05/15/21 Range/Units 13:30 14:06 14:25 WBC (4.0-11.0) K/uL RBC (4.30-5.90) M/uL Hgb (12.0-16.0) g/dL Hct (36.0-46.0) % MCV (80.0-98.0) fL MCH (27.0-32.0) pg MCHC (31.0-37.0) g/dL RDW Std Deviation (28.0-62.0) fl RDW Coeff of Erma (11.0-15.0) % Plt Count (150-400) K/uL MPV (7.40-12.00) fL Neut % (Auto) (48.0-80.0) % Lymph % (Auto) (16.0-40.0) % Mckean % (Auto) (0.0-15.0) % Eos % (Auto) (0.0-7.0) % Baso % (Auto) (0.0-1.5) % Neut # (Auto) (1.4-5.7) K/uL Lymph # (Auto) (0.6-2.4) K/uL Mckean # (Auto) (0.0-0.8) K/uL Eos # (Auto) (0.0-0.7) K/uL Baso # (Auto) (0.0-0.1) K/uL Add Manual Diff Neutrophils % (Manual) (48.0-80.0) % Band Neutrophils % % Lymphocytes % (Manual) (16.0-40.0) % Monocytes % (Manual) (0.0-15.0) % Nucleated RBC % /100WBC Absolute Seg Neuts (1.4-5.7) Band Neutrophils # Lymphocytes # (Manual) (0.6-2.4) Monocytes # (Manual) (0.0-0.8) Nucleated RBCs # K/uL ABG pH 7.46 H (7.35-7.45) ABG pCO2 37 (35-45) mmHG ABG pO2 74 L (80-105) mmHG ABG HCO3 27 H (22-26) mEq/L ABG Total CO2 24.1 (23-27) mmol/L ABG Base Excess 2.7 (-2.0-3.0) Sodium (136-145) mmol/L Potassium (3.5-5.1) mmol/L Chloride (98-107) mmol/L Carbon Dioxide (21.0-32.0) mmol/L BUN (7.0-18.0) mg/dL Creatinine (0.6-1.0) mg/dL Est Cr Clr Drug Dosing mL/min Estimated GFR (MDRD) ml/min Glucose (74-106) mg/dL Lactic Acid (0.4-2.0) mmol/L Calcium (8.5-10.1) mg/dL Magnesium (1.8-2.4) mg/dL Total Bilirubin (0.2-1.0) mg/dL Direct Bilirubin 0.10 (0.0-0.5) mg/dL AST (15-37) IU/L ALT (14-63) IU/L Alkaline Phosphatase (46-116) U/L Troponin I (0.000-0.056) ng/mL Total Protein (6.4-8.2) g/dL Albumin (3.4-5.0) g/dL Globulin (2.6-4.0) g/dL Albumin/Globulin Ratio (0.9-1.6) Influenza Type A RNA NEGATIVE (NEGATIVE) Influenza Type B RNA NEGATIVE (NEGATIVE) SARS-CoV-2 RNA (IKE) POSITIVE H (NEGATIVE) 05/16/21 05/16/21 Range/Units 04:40 04:40 WBC 7.76 (4.0-11.0) K/uL RBC 4.88 (4.30-5.90) M/uL Hgb 10.4 L (12.0-16.0) g/dL Hct 34.3 L (36.0-46.0) % MCV 70.3 L (80.0-98.0) fL MCH 21.3 L (27.0-32.0) pg MCHC 30.3 L (31.0-37.0) g/dL RDW Std Deviation 50.5 (28.0-62.0) fl RDW Coeff of Erma 20 H (11.0-15.0) % Plt Count 425 H (150-400) K/uL MPV 9.70 (7.40-12.00) fL Neut % (Auto) (48.0-80.0) % Lymph % (Auto) (16.0-40.0) % Mckean % (Auto) (0.0-15.0) % Eos % (Auto) (0.0-7.0) % Baso % (Auto) (0.0-1.5) % Neut # (Auto) (1.4-5.7) K/uL Lymph # (Auto) (0.6-2.4) K/uL Mckean # (Auto) (0.0-0.8) K/uL Eos # (Auto) (0.0-0.7) K/uL Baso # (Auto) (0.0-0.1) K/uL Add Manual Diff YES Neutrophils % (Manual) 74 (48.0-80.0) % Band Neutrophils % 3 % Lymphocytes % (Manual) 19 (16.0-40.0) % Monocytes % (Manual) 4 (0.0-15.0) % Nucleated RBC % 0.4 /100WBC Absolute Seg Neuts 5.7 (1.4-5.7) Band Neutrophils # 0.2 Lymphocytes # (Manual) 1.5 (0.6-2.4) Monocytes # (Manual) 0.3 (0.0-0.8) Nucleated RBCs # 0 K/uL ABG pH (7.35-7.45) ABG pCO2 (35-45) mmHG ABG pO2 (80-105) mmHG ABG HCO3 (22-26) mEq/L ABG Total CO2 (23-27) mmol/L ABG Base Excess (-2.0-3.0) Sodium 135 L (136-145) mmol/L Potassium 4.1 (3.5-5.1) mmol/L Chloride 99 (98-107) mmol/L Carbon Dioxide 27.1 (21.0-32.0) mmol/L BUN 24 H (7.0-18.0) mg/dL Creatinine 0.9 (0.6-1.0) mg/dL Est Cr Clr Drug Dosing 57.72 mL/min Estimated GFR (MDRD) > 60.0 ml/min Glucose 137 H (74-106) mg/dL Lactic Acid (0.4-2.0) mmol/L Calcium 8.9 (8.5-10.1) mg/dL Magnesium (1.8-2.4) mg/dL Total Bilirubin 0.1 L (0.2-1.0) mg/dL Direct Bilirubin (0.0-0.5) mg/dL AST 36 (15-37) IU/L ALT 47 (14-63) IU/L Alkaline Phosphatase 153 H (46-116) U/L Troponin I (0.000-0.056) ng/mL Total Protein 7.0 (6.4-8.2) g/dL Albumin 2.7 L (3.4-5.0) g/dL Globulin 4.3 H (2.6-4.0) g/dL Albumin/Globulin Ratio 0.6 L (0.9-1.6) Influenza Type A RNA (NEGATIVE) Influenza Type B RNA (NEGATIVE) SARS-CoV-2 RNA (IKE) (NEGATIVE) [place] Results Last 24 Hours: Microbiology 05/15/21 13:35 Aerobic Blood Culture - Preliminary Blood - Venous NO GROWTH AFTER 1 DAY Anaerobic Blood Culture - Preliminary NO GROWTH AFTER 1 DAY Med Orders - Current: Current Medications Albuterol/Ipratropium (Albuterol/Ipratropium 4 Gm Inhalation [place]) 1 gm INH Q4H PRN PRN Reason: Dyspnea Last Admin: 05/16/21 08:19 Dose: 1 puff Documented by: Baricitinib (Baricitinib 2 Mg Tab) 4 mg PO Q24H [facility] Last Admin: 05/15/21 17:58 Dose: 4 mg Documented by: Benzonatate (Benzonatate 100 Mg Cap) 100 mg PO Q6H PRN PRN Reason: Cough Last Admin: 05/16/21 08:20 Dose: 100 mg Documented by: Clonazepam (Clonazepam 1 Mg Tab) 1 mg PO BEDTIME [facility] Last Admin: 05/16/21 04:27 Dose: 1 mg Documented by: Dexamethasone (Dexamethasone 4 Mg Tab) 6 mg PO DAILY [facility] Last Admin: 05/16/21 08:08 Dose: 6 mg Documented by: Diphenhydramine HCl (Diphenhydramine 50 Mg Cap) 50 mg PO BEDTIME [facility] Last Admin: 05/15/21 22:41 Dose: 50 mg Documented by: Enoxaparin Sodium (Enoxaparin 40 Mg/0.4 Ml Syringe) 40 mg SUBCUT Q24H [facility] Last Admin: 05/15/21 16:01 Dose: 40 mg Documented by: Guaifenesin/Dextromethorphan (Guaifenesin/Dextromethorphan 100-10 Mg/5 Ml Soln 10 Ml Cup) 10 ml PO Q4H PRN PRN Reason: Cough Last Admin: 05/16/21 12:04 Dose: 10 ml Documented by: Remdesivir 100 mg/ Sodium (Chloride) 100 mls @ 100 mls/hr IV Q24H [facility] Stop: 05/19/21 16:14 Sodium Chloride (Sodium Chloride 0.9% 10 Ml Syringe) 10 ml FLUSH ASDIRECTED PRN PRN Reason: Keep Vein Open Last Admin: 05/15/21 14:00 Dose: 10 ml Documented by: Sodium Chloride (Sodium Chloride 0.9% 2.5 Ml Syringe) 2.5 ml FLUSH ASDIRECTED PRN PRN Reason: Keep Vein Open Last Admin: 05/15/21 14:00 Dose: 2.5 ml Documented by: Sodium Chloride (Sodium Chloride 0.9% 10 Ml Syringe) 10 ml FLUSH ASDIRECTED PRN PRN Reason: Keep Vein Open Last Admin: 05/15/21 14:01 Dose: 10 ml Documented by: Sodium Chloride (Sodium Chloride 0.9% 2.5 Ml Syringe) 2.5 ml FLUSH ASDIRECTED PRN PRN Reason: Keep Vein Open Last Admin: 05/15/21 14:01 Dose: 2.5 ml Documented by: Discontinued Medications Albuterol/Ipratropium (Albuterol/Ipratropium 3.0-0.5 Mg/3 Ml Neb Soln) 3 ml NEB ONETIME ONE Stop: 05/15/21 13:49 Last Admin: 05/15/21 13:53 Dose: 3 ml Documented by: Remdesivir 200 mg/ Sodium (Chloride) 250 mls @ 250 mls/hr IV ONETIME ONE Stop: 05/15/21 15:13 Last Admin: 05/15/21 15:59 Dose: Not Given Documented by: Remdesivir 200 mg/ Sodium (Chloride) 250 mls @ 250 mls/hr IV ONETIME ONE Stop: 05/15/21 15:13 Last Admin: 05/15/21 15:49 Dose: 250 mls/hr Documented by: Iopamidol (Iopamidol 755 Mg/Ml 500 Ml Multipack Bottle) 100 ml IVPUSH ONETIME ONE Stop: 05/15/21 17:31 Last Admin: 05/15/21 17:30 Dose: 100 ml Documented by: Methylprednisolone Sodium Succinate (Methylprednisolone Sodium Succinate 125 Mg/2 Ml Sdv) 125 mg IVPUSH ONETIME ONE Stop: 05/15/21 13:49 Last Admin: 05/15/21 13:53 Dose: 125 mg Documented by: - Exam Quality Assessment: Supplemental Oxygen (50% FiO2), DVT Prophylaxis General: Alert, Oriented, Cooperative, No Acute Distress HEENT: Pupils Equal, Pupils Reactive, Mucous Membr. Moist/[place] Neck: Supple Lungs: Clear to Auscultation, Normal Respiratory Effort Cardiovascular: Regular Rate, Regular Rhythm Extremities: Normal Inspection, Normal Range of Motion, Non-Tender, No Pedal Edema, Normal Capillary Refill Peripheral Pulses: 2+: Carotid (L), Carotid (R), Radial (L), Radial (R), Posterior Tibial (L), Posterior Tibial (R) Skin: Warm, Dry, Intact Neurological: No New Focal Deficit Psy/Mental Status: Alert, Normal Affect, Normal Mood - Patient Data Lab Results Last 24 hrs: Laboratory Results - last 24 hr 05/15/21 05/15/2122 Range/Units 13:30 13:30 13:30 WBC 14.64 H (4.0-11.0) K/uL RBC 5.97 H (4.30-5.90) M/uL Hgb 12.8 (12.0-16.0) g/dL Hct 41.9 (36.0-46.0) % MCV 70.2 L (80.0-98.0) fL MCH 21.4 L (27.0-32.0) pg MCHC 30.5 L (31.0-37.0) g/dL RDW Std Deviation 49.5 (28.0-62.0) fl RDW Coeff of Erma 20 H (11.0-15.0) % Plt Count 440 H (150-400) K/uL MPV 10.20 (7.40-12.00) fL Neut % (Auto) 77.5 (48.0-80.0) % Lymph % (Auto) 18.7 (16.0-40.0) % Mckean % (Auto) 3.6 (0.0-15.0) % Eos % (Auto) 0.0 (0.0-7.0) % Baso % (Auto) 0.2 (0.0-1.5) % Neut # (Auto) 11.3 H (1.4-5.7) K/uL Lymph # (Auto) 2.7 H (0.6-2.4) K/uL Mckean # (Auto) 0.5 (0.0-0.8) K/uL Eos # (Auto) 0.0 (0.0-0.7) K/uL Baso # (Auto) 0.0 (0.0-0.1) K/uL Add Manual Diff Neutrophils % (Manual) (48.0-80.0) % Band Neutrophils % % Lymphocytes % (Manual) (16.0-40.0) % Monocytes % (Manual) (0.0-15.0) % Nucleated RBC % 0.0 /100WBC Absolute Seg Neuts (1.4-5.7) Band Neutrophils # Lymphocytes # (Manual) (0.6-2.4) Monocytes # (Manual) (0.0-0.8) Nucleated RBCs # 0 K/uL ABG pH (7.35-7.45) ABG pCO2 (35-45) mmHG ABG pO2 (80-105) mmHG ABG HCO3 (22-26) mEq/L ABG Total CO2 (23-27) mmol/L ABG Base Excess (-2.0-3.0) Sodium 137 (136-145) mmol/L Potassium 4.5 (3.5-5.1) mmol/L Chloride 98 (98-107) mmol/L Carbon Dioxide 26.7 (21.0-32.0) mmol/L BUN 24 H (7.0-18.0) mg/dL Creatinine 1.0 (0.6-1.0) mg/dL Est Cr Clr Drug Dosing 9.00 mL/min Estimated GFR (MDRD) 57.4 ml/min Glucose 86 (74-106) mg/dL Lactic Acid 1.1 (0.4-2.0) mmol/L Calcium 10.0 (8.5-10.1) mg/dL Magnesium 2.4 (1.8-2.4) mg/dL Total Bilirubin 0.3 (0.2-1.0) mg/dL Direct Bilirubin (0.0-0.5) mg/dL AST 76 H (15-37) IU/L ALT 61 (14-63) IU/L Alkaline Phosphatase 193 H (46-116) U/L Troponin I <0.050 (0.000-0.056) ng/mL Total Protein 8.5 H (6.4-8.2) g/dL Albumin 3.5 (3.4-5.0) g/dL Globulin 5.0 H (2.6-4.0) g/dL Albumin/Globulin Ratio 0.7 L (0.9-1.6) Influenza Type A RNA (NEGATIVE) Influenza Type B RNA (NEGATIVE) SARS-CoV-2 RNA (IKE) (NEGATIVE) 05/15/21 05/15/21 05/15/21 Range/Units 13:30 14:06 14:25 WBC (4.0-11.0) K/uL RBC (4.30-5.90) M/uL Hgb (12.0-16.0) g/dL Hct (36.0-46.0) % MCV (80.0-98.0) fL MCH (27.0-32.0) pg MCHC (31.0-37.0) g/dL RDW Std Deviation (28.0-62.0) fl RDW Coeff of Erma (11.0-15.0) % Plt Count (150-400) K/uL MPV (7.40-12.00) fL Neut % (Auto) (48.0-80.0) % Lymph % (Auto) (16.0-40.0) % Mckean % (Auto) (0.0-15.0) % Eos % (Auto) (0.0-7.0) % Baso % (Auto) (0.0-1.5) % Neut # (Auto) (1.4-5.7) K/uL Lymph # (Auto) (0.6-2.4) K/uL Mckean # (Auto) (0.0-0.8) K/uL Eos # (Auto) (0.0-0.7) K/uL Baso # (Auto) (0.0-0.1) K/uL Add Manual Diff Neutrophils % (Manual) (48.0-80.0) % Band Neutrophils % % Lymphocytes % (Manual) (16.0-40.0) % Monocytes % (Manual) (0.0-15.0) % Nucleated RBC % /100WBC Absolute Seg Neuts (1.4-5.7) Band Neutrophils # Lymphocytes # (Manual) (0.6-2.4) Monocytes # (Manual) (0.0-0.8) Nucleated RBCs # K/uL ABG pH 7.46 H (7.35-7.45) ABG pCO2 37 (35-45) mmHG ABG pO2 74 L (80-105) mmHG ABG HCO3 27 H (22-26) mEq/L ABG Total CO2 24.1 (23-27) mmol/L ABG Base Excess 2.7 (-2.0-3.0) Sodium (136-145) mmol/L Potassium (3.5-5.1) mmol/L Chloride (98-107) mmol/L Carbon Dioxide (21.0-32.0) mmol/L BUN (7.0-18.0) mg/dL Creatinine (0.6-1.0) mg/dL Est Cr Clr Drug Dosing mL/min Estimated GFR (MDRD) ml/min Glucose (74-106) mg/dL Lactic Acid (0.4-2.0) mmol/L Calcium (8.5-10.1) mg/dL Magnesium (1.8-2.4) mg/dL Total Bilirubin (0.2-1.0) mg/dL Direct Bilirubin 0.10 (0.0-0.5) mg/dL AST (15-37) IU/L ALT (14-63) IU/L Alkaline Phosphatase (46-116) U/L Troponin I (0.000-0.056) ng/mL Total Protein (6.4-8.2) g/dL Albumin (3.4-5.0) g/dL Globulin (2.6-4.0) g/dL Albumin/Globulin Ratio (0.9-1.6) Influenza Type A RNA NEGATIVE (NEGATIVE) Influenza Type B RNA NEGATIVE (NEGATIVE) SARS-CoV-2 RNA (IKE) POSITIVE H (NEGATIVE) 05/16/21 05/16/21 Range/Units 04:40 04:40 WBC 7.76 (4.0-11.0) K/uL RBC 4.88 (4.30-5.90) M/uL Hgb 10.4 L (12.0-16.0) g/dL Hct 34.3 L (36.0-46.0) % MCV 70.3 L (80.0-98.0) fL MCH 21.3 L (27.0-32.0) pg MCHC 30.3 L (31.0-37.0) g/dL RDW Std Deviation 50.5 (28.0-62.0) fl RDW Coeff of Erma 20 H (11.0-15.0) % Plt Count 425 H (150-400) K/uL MPV 9.70 (7.40-12.00) fL Neut % (Auto) (48.0-80.0) % Lymph % (Auto) (16.0-40.0) % Mckean % (Auto) (0.0-15.0) % Eos % (Auto) (0.0-7.0) % Baso % (Auto) (0.0-1.5) % Neut # (Auto) (1.4-5.7) K/uL Lymph # (Auto) (0.6-2.4) K/uL Mckean # (Auto) (0.0-0.8) K/uL Eos # (Auto) (0.0-0.7) K/uL Baso # (Auto) (0.0-0.1) K/uL Add Manual Diff YES Neutrophils % (Manual) 74 (48.0-80.0) % Band Neutrophils % 3 % Lymphocytes % (Manual) 19 (16.0-40.0) % Monocytes % (Manual) 4 (0.0-15.0) % Nucleated RBC % 0.4 /100WBC Absolute Seg Neuts 5.7 (1.4-5.7) Band Neutrophils # 0.2 Lymphocytes # (Manual) 1.5 (0.6-2.4) Monocytes # (Manual) 0.3 (0.0-0.8) Nucleated RBCs # 0 K/uL ABG pH (7.35-7.45) ABG pCO2 (35-45) mmHG ABG pO2 (80-105) mmHG ABG HCO3 (22-26) mEq/L ABG Total CO2 (23-27) mmol/L ABG Base Excess (-2.0-3.0) Sodium 135 L (136-145) mmol/L Potassium 4.1 (3.5-5.1) mmol/L Chloride 99 (98-107) mmol/L Carbon Dioxide 27.1 (21.0-32.0) mmol/L BUN 24 H (7.0-18.0) mg/dL Creatinine 0.9 (0.6-1.0) mg/dL Est Cr Clr Drug Dosing 57.72 mL/min Estimated GFR (MDRD) > 60.0 ml/min Glucose 137 H (74-106) mg/dL Lactic Acid (0.4-2.0) mmol/L Calcium 8.9 (8.5-10.1) mg/dL Magnesium (1.8-2.4) mg/dL Total Bilirubin 0.1 L (0.2-1.0) mg/dL Direct Bilirubin (0.0-0.5) mg/dL AST 36 (15-37) IU/L ALT 47 (14-63) IU/L Alkaline Phosphatase 153 H (46-116) U/L Troponin I (0.000-0.056) ng/mL Total Protein 7.0 (6.4-8.2) g/dL Albumin 2.7 L (3.4-5.0) g/dL Globulin 4.3 H (2.6-4.0) g/dL Albumin/Globulin Ratio 0.6 L (0.9-1.6) Influenza Type A RNA (NEGATIVE) Influenza Type B RNA (NEGATIVE) SARS-CoV-2 RNA (IKE) (NEGATIVE) Result Diagrams: 05/16/21 04:40 05/16/21 04:40 [place] Results Last 24 hrs: Microbiology 05/15/21 13:35 Aerobic Blood Culture - Preliminary Blood - Venous NO GROWTH AFTER 1 DAY Anaerobic Blood Culture - Preliminary NO GROWTH AFTER 1 DAY Sepsis Event Note - Evaluation Sepsis Screening Result: No Definite Risk - Focused Exam Vital Signs: Vital Signs Temp Resp BP Pulse Ox 05/16/21 13:00 17 108/52 L 94 L 05/16/21 12:00 97.3 F 26 H 116/59 L 96 05/16/21 11:00 22 H 104/80 93 L 05/16/21 10:00 18 123/61 90 L 05/16/21 09:00 97.3 F 18 113/73 97 05/16/21 08:00 21 H 124/73 93 L 05/16/21 07:00 24 H 103/61 95 05/16/21 06:00 21 H 115/74 95 05/16/21 05:00 20 99/46 L 95 05/16/21 04:00 97.2 F 22 H 119/55 L 94 L 05/16/21 03:00 19 114/52 L 94 L 05/16/21 02:00 20 112/51 L 92 L - Problem List Review Problem List Initiated/Reviewed/Updated: Yes - Plan Plan:: 56 yo female admitted with COVID-19 with acute hypoxic respiratory failure. 1. Hypoxic respiratory failure secondary to COVID-pneumonia: On HHFNC 50%, will continue to wean as tolerated, CT indicated no PE with bilateral COVID infiltrates and reactive mediastinal/hilar adenopathy Treating with remdesivir, dexamethasone, and baricitinib. Patient understands the FDA EUA on baricitinib and patient has consented to its use. Encouraged to prone and use I/S 2. Leukocytosis secondary to above: Resolved 3. Mild anemia: 10.4, may be dilutional, continue to monitor with daily CBC. 4. Mild thrombocytosis: 425, continue to monitor with daily CBC lovenox for DVT prophylaxis
[2021-05-16] MEDS: Enoxaparin 40 MG/0.4 ML Syringe SUBCUT SCH (15:54)
[2021-05-16] MEDS: REMDESIVIR 100 MG in Sodium Chloride 0.9% 100 ML IV SCH (15:54)
[2021-05-16] MEDS ORDERED: Non-Formulary Medication 1 Each (Amphetamine/Dextroamphetamine [Adderall Xr] 20 MG Cap.Er) PO PRN (19:24)
[2021-05-16] MEDS: diphenhydrAMINE 50 MG Cap PO SCH (20:36)
[2021-05-16] MEDS ORDERED: DESVENLAFAXINE SUCCINATE 100 MG PO SCH (21:00)
[2021-05-17 08:06] LABS: BLOOD UREA NITROGEN,BUN 23 mg/dL (7.0-18.0); CHLORIDE,CL 99 mmol/L (98-107); GLUCOSE RANDOM 74 mg/dL (74-106); POTASSIUM,K 4.1 mmol/L (3.5-5.1); SODIUM,NA 134 mmol/L (136-145)
[2021-05-17] MEDS: Dexamethasone 4 MG Tab PO SCH (08:47)
[2021-05-17] MEDS: guaiFENesin/Dextromethorphan 100-10 MG/5 ML Soln 10 ML Cup PO PRN (08:47)
[2021-05-17] MEDS: Benzonatate 100 MG Cap PO PRN (08:47)
--- NOTE | 2021-05-17 11:48 | PCM.PN ---
- General Info Date of Service: 05/17/21 (n) Admission Dx/Problem (Free Text): Admission Diagnosis/Problem Admission Diagnosis/Problem Hypoxia Subjective Update: 56-year-old female admitted for respiratory failure secondary to COVID pneumonia. No overnight events, remains on high flow nasal cannula FiO2 50%. Patient states she feels much better, denies any shortness of breath, chest pain, and was resting comfortably in bed . Functional Status: Reports: Pain Controlled, Tolerating Diet, Incentive Spirometry - Review of Systems General: Reports: No Symptoms HEENT: Reports: No Symptoms Pulmonary: Reports: No Symptoms Cardiovascular: Reports: No Symptoms Gastrointestinal: Reports: No Symptoms Genitourinary: Reports: No Symptoms Musculoskeletal: Reports: No Symptoms Skin: Reports: No Symptoms Neurological: Reports: No Symptoms Psychiatric: Reports: No Symptoms - Patient Data Vitals - Most Recent: Last Vital Signs Temp 97.3 F 05/17/21 04:00 Pulse 80 05/15/21 19:00 Resp 19 05/17/21 07:00 BP 134/72 05/17/21 07:00 Pulse Ox 95 05/17/21 07:00 Weight - Most Recent: 196 lb 2.113 oz I&O - Last 24 Hours: Intake & Output 05/16/21 05/17/21 05/17/21 22:59 06:59 14:59 Intake Total 1000 350 Output Total 700 Balance 1000 -350 Lab Results Last 24 Hours: Laboratory Results - last 24 hr 05/15/21 05/15/21 05/17/21 Range/Units 14:10 14:10 05:26 WBC 11.88 H (4.0-11.0) K/uL RBC 4.83 (4.30-5.90) M/uL Hgb 10.3 L (12.0-16.0) g/dL Hct 34.0 L (36.0-46.0) % MCV 70.4 L (80.0-98.0) fL MCH 21.3 L (27.0-32.0) pg MCHC 30.3 L (31.0-37.0) g/dL RDW Std Deviation 49.6 (28.0-62.0) fl RDW Coeff of Erma 19 H (11.0-15.0) % Plt Count 487 H (150-400) K/uL MPV 10.10 (7.40-12.00) fL Neut % (Auto) 65.6 (48.0-80.0) % Lymph % (Auto) 28.5 (16.0-40.0) % [place] % (Auto) 5.7 (0.0-15.0) % Eos % (Auto) 0.0 (0.0-7.0) % Baso % (Auto) 0.2 (0.0-1.5) % Neut # (Auto) 7.8 H (1.4-5.7) K/uL Lymph # (Auto) 3.4 H (0.6-2.4) K/uL [place] # (Auto) 0.7 (0.0-0.8) K/uL Eos # (Auto) 0.0 (0.0-0.7) K/uL Baso # (Auto) 0.0 (0.0-0.1) K/uL Nucleated RBC % 0.0 /100WBC Nucleated RBCs # 0 K/uL Sodium (136-145) mmol/L Potassium (3.5-5.1) mmol/L Chloride (98-107) mmol/L Carbon Dioxide (21.0-32.0) mmol/L BUN (7.0-18.0) mg/dL Creatinine (0.6-1.0) mg/dL Est Cr Clr Drug Dosing mL/min Estimated GFR (MDRD) ml/min Glucose (74-106) mg/dL Calcium (8.5-10.1) mg/dL Total Bilirubin (0.2-1.0) mg/dL AST (15-37) IU/L ALT (14-63) IU/L Alkaline Phosphatase (46-116) U/L C-Reactive Protein (0.00-0.90) mg/dL C-React Prot High Sens 103.89 mg/L Total Protein (6.4-8.2) g/dL Albumin (3.4-5.0) g/dL Globulin (2.6-4.0) g/dL Albumin/Globulin Ratio (0.9-1.6) Procalcitonin 0.09 ng/mL 05/17/21 05/17/21 Range/Units 05:26 05:26 WBC (4.0-11.0) K/uL RBC (4.30-5.90) M/uL Hgb (12.0-16.0) g/dL Hct (36.0-46.0) % MCV (80.0-98.0) fL MCH (27.0-32.0) pg MCHC (31.0-37.0) g/dL RDW Std Deviation (28.0-62.0) fl RDW Coeff of Erma (11.0-15.0) % Plt Count (150-400) K/uL MPV (7.40-12.00) fL Neut % (Auto) (48.0-80.0) % Lymph % (Auto) (16.0-40.0) % [place] % (Auto) (0.0-15.0) % Eos % (Auto) (0.0-7.0) % Baso % (Auto) (0.0-1.5) % Neut # (Auto) (1.4-5.7) K/uL Lymph # (Auto) (0.6-2.4) K/uL [place] # (Auto) (0.0-0.8) K/uL Eos # (Auto) (0.0-0.7) K/uL Baso # (Auto) (0.0-0.1) K/uL Nucleated RBC % /100WBC Nucleated RBCs # K/uL Sodium 134 L (136-145) mmol/L Potassium 4.1 (3.5-5.1) mmol/L Chloride 99 (98-107) mmol/L Carbon Dioxide 26.0 (21.0-32.0) mmol/L BUN 23 H (7.0-18.0) mg/dL Creatinine 0.8 (0.6-1.0) mg/dL Est Cr Clr Drug Dosing 64.93 mL/min Estimated GFR (MDRD) > 60.0 ml/min Glucose 74 (74-106) mg/dL Calcium 8.8 (8.5-10.1) mg/dL Total Bilirubin 0.2 (0.2-1.0) mg/dL AST 42 H (15-37) IU/L ALT 41 (14-63) IU/L Alkaline Phosphatase 141 H (46-116) U/L C-Reactive Protein 3.30 H (0.00-0.90) mg/dL C-React Prot High Sens mg/L Total Protein 6.8 (6.4-8.2) g/dL Albumin 2.8 L (3.4-5.0) g/dL Globulin 4.0 (2.6-4.0) g/dL Albumin/Globulin Ratio 0.7 L (0.9-1.6) Procalcitonin ng/mL [place] Results Last 24 Hours: Microbiology 05/15/21 13:53 Aerobic Blood Culture - Preliminary Blood - Venous - Lab Draw NO GROWTH AFTER 1 DAY Anaerobic Blood Culture - Preliminary NO GROWTH AFTER 1 DAY 05/15/21 13:35 Aerobic Blood Culture - Preliminary Blood - Venous NO GROWTH AFTER 1 DAY Anaerobic Blood Culture - Preliminary NO GROWTH AFTER 1 DAY Med Orders - Current: Current Medications Albuterol/Ipratropium (Albuterol/Ipratropium 4 Gm Inhalation [place]) 1 gm INH Q4H PRN PRN Reason: Dyspnea Last Admin: 05/16/21 08:19 Dose: 1 puff Documented by: Baricitinib (Baricitinib 2 Mg Tab) 4 mg PO Q24H [facility] Last Admin: 05/16/21 15:55 Dose: 4 mg Documented by: Benzonatate (Benzonatate 100 Mg Cap) 100 mg PO Q6H PRN PRN Reason: Cough Last Admin: 05/17/21 08:47 Dose: 100 mg Documented by: Clonazepam (Clonazepam 1 Mg Tab) 1 mg PO BEDTIME [facility] Last Admin: 05/16/21 20:36 Dose: 1 mg Documented by: Dexamethasone (Dexamethasone 4 Mg Tab) 6 mg PO DAILY [facility] Last Admin: 05/17/21 08:47 Dose: 6 mg Documented by: Diphenhydramine HCl (Diphenhydramine 50 Mg Cap) 50 mg PO BEDTIME [facility] Last Admin: 05/16/21 20:36 Dose: 50 mg Documented by: Enoxaparin Sodium (Enoxaparin 40 Mg/0.4 Ml Syringe) 40 mg SUBCUT Q24H [facility] Last Admin: 05/16/21 15:54 Dose: 40 mg Documented by: Guaifenesin/Dextromethorphan (Guaifenesin/Dextromethorphan 100-10 Mg/5 Ml Soln 10 Ml Cup) 10 ml PO Q4H PRN PRN Reason: Cough Last Admin: 05/17/21 08:47 Dose: 10 ml Documented by: Remdesivir 100 mg/ Sodium (Chloride) 100 mls @ 100 mls/hr IV Q24H [facility] Stop: 05/19/21 16:14 Last Admin: 05/16/21 15:54 Dose: 100 mls/hr Documented by: Desvenlafaxine Succinate Er 100 Mg* *Own Med 1 each PO BEDTIME [facility] Sodium Chloride (Sodium Chloride 0.9% 10 Ml Syringe) 10 ml FLUSH ASDIRECTED PRN PRN Reason: Keep Vein Open Last Admin: 05/15/21 14:00 Dose: 10 ml Documented by: Sodium Chloride (Sodium Chloride 0.9% 2.5 Ml Syringe) 2.5 ml FLUSH ASDIRECTED PRN PRN Reason: Keep Vein Open Last Admin: 05/15/21 14:00 Dose: 2.5 ml Documented by: Sodium Chloride (Sodium Chloride 0.9% 10 Ml Syringe) 10 ml FLUSH ASDIRECTED PRN PRN Reason: Keep Vein Open Last Admin: 05/15/21 14:01 Dose: 10 ml Documented by: Sodium Chloride (Sodium Chloride 0.9% 2.5 Ml Syringe) 2.5 ml FLUSH ASDIRECTED PRN PRN Reason: Keep Vein Open Last Admin: 05/15/21 14:01 Dose: 2.5 ml Documented by: Discontinued Medications Albuterol/Ipratropium (Albuterol/Ipratropium 3.0-0.5 Mg/3 Ml Neb Soln) 3 ml NEB ONETIME ONE Stop: 05/15/21 13:49 Last Admin: 05/15/21 13:53 Dose: 3 ml Documented by: Remdesivir 200 mg/ Sodium (Chloride) 250 mls @ 250 mls/hr IV ONETIME ONE Stop: 05/15/21 15:13 Last Admin: 05/15/21 15:59 Dose: Not Given Documented by: Remdesivir 200 mg/ Sodium (Chloride) 250 mls @ 250 mls/hr IV ONETIME ONE Stop: 05/15/21 15:13 Last Admin: 05/15/21 15:49 Dose: 250 mls/hr Documented by: Iopamidol (Iopamidol 755 Mg/Ml 500 Ml Multipack Bottle) 100 ml IVPUSH ONETIME ONE Stop: 05/15/21 17:31 Last Admin: 05/15/21 17:30 Dose: 100 ml Documented by: Methylprednisolone Sodium Succinate (Methylprednisolone Sodium Succinate 125 Mg/2 Ml Sdv) 125 mg IVPUSH ONETIME ONE Stop: 05/15/21 13:49 Last Admin: 05/15/21 13:53 Dose: 125 mg Documented by: Desvenlafaxine Succinate Er 100 Mg* *Own Med 100 mg PO BEDTIME [facility] Last Admin: 05/16/21 20:36 Dose: 100 mg Documented by: - Exam Quality Assessment: Supplemental Oxygen, DVT Prophylaxis General: Alert, Oriented, Cooperative, No Acute Distress HEENT: Pupils Equal, Pupils Reactive, EOMI Neck: Supple, No JVD Lungs: Clear to Auscultation, Normal Respiratory Effort Cardiovascular: Regular Rate, Regular Rhythm GI/Abdominal Exam: Normal Bowel Sounds, Soft, Non-Tender Extremities: Normal Inspection, Normal Range of Motion, Non-Tender, No Pedal Edema, Normal Capillary Refill Peripheral Pulses: 2+: Carotid (L), Carotid (R), Posterior Tibial (L), Posterior Tibial (R) Skin: Warm, Dry, Intact Neurological: No New Focal Deficit Psy/Mental Status: Alert, Normal Affect, Normal Mood - Patient Data Lab Results Last 24 hrs: Laboratory Results - last 24 hr 05/15/21 05/15/21 05/17/21 Range/Units 14:10 14:10 05:26 WBC 11.88 H (4.0-11.0) K/uL RBC 4.83 (4.30-5.90) M/uL Hgb 10.3 L (12.0-16.0) g/dL Hct 34.0 L (36.0-46.0) % MCV 70.4 L (80.0-98.0) fL MCH 21.3 L (27.0-32.0) pg MCHC 30.3 L (31.0-37.0) g/dL RDW Std Deviation 49.6 (28.0-62.0) fl RDW Coeff of Erma 19 H (11.0-15.0) % Plt Count 487 H (150-400) K/uL MPV 10.10 (7.40-12.00) fL Neut % (Auto) 65.6 (48.0-80.0) % Lymph % (Auto) 28.5 (16.0-40.0) % [place] % (Auto) 5.7 (0.0-15.0) % Eos % (Auto) 0.0 (0.0-7.0) % Baso % (Auto) 0.2 (0.0-1.5) % Neut # (Auto) 7.8 H (1.4-5.7) K/uL Lymph # (Auto) 3.4 H (0.6-2.4) K/uL [place] # (Auto) 0.7 (0.0-0.8) K/uL Eos # (Auto) 0.0 (0.0-0.7) K/uL Baso # (Auto) 0.0 (0.0-0.1) K/uL Nucleated RBC % 0.0 /100WBC Nucleated RBCs # 0 K/uL Sodium (136-145) mmol/L Potassium (3.5-5.1) mmol/L Chloride (98-107) mmol/L Carbon Dioxide (21.0-32.0) mmol/L BUN (7.0-18.0) mg/dL Creatinine (0.6-1.0) mg/dL Est Cr Clr Drug Dosing mL/min Estimated GFR (MDRD) ml/min Glucose (74-106) mg/dL Calcium (8.5-10.1) mg/dL Total Bilirubin (0.2-1.0) mg/dL AST (15-37) IU/L ALT (14-63) IU/L Alkaline Phosphatase (46-116) U/L C-Reactive Protein (0.00-0.90) mg/dL C-React Prot High Sens 103.89 mg/L Total Protein (6.4-8.2) g/dL Albumin (3.4-5.0) g/dL Globulin (2.6-4.0) g/dL Albumin/Globulin Ratio (0.9-1.6) Procalcitonin 0.09 ng/mL 05/17/21 05/17/21 Range/Units 05:26 05:26 WBC (4.0-11.0) K/uL RBC (4.30-5.90) M/uL Hgb (12.0-16.0) g/dL Hct (36.0-46.0) % MCV (80.0-98.0) fL MCH (27.0-32.0) pg MCHC (31.0-37.0) g/dL RDW Std Deviation (28.0-62.0) fl RDW Coeff of Erma (11.0-15.0) % Plt Count (150-400) K/uL MPV (7.40-12.00) fL Neut % (Auto) (48.0-80.0) % Lymph % (Auto) (16.0-40.0) % [place] % (Auto) (0.0-15.0) % Eos % (Auto) (0.0-7.0) % Baso % (Auto) (0.0-1.5) % Neut # (Auto) (1.4-5.7) K/uL Lymph # (Auto) (0.6-2.4) K/uL [place] # (Auto) (0.0-0.8) K/uL Eos # (Auto) (0.0-0.7) K/uL Baso # (Auto) (0.0-0.1) K/uL Nucleated RBC % /100WBC Nucleated RBCs # K/uL Sodium 134 L (136-145) mmol/L Potassium 4.1 (3.5-5.1) mmol/L Chloride 99 (98-107) mmol/L Carbon Dioxide 26.0 (21.0-32.0) mmol/L BUN 23 H (7.0-18.0) mg/dL Creatinine 0.8 (0.6-1.0) mg/dL Est Cr Clr Drug Dosing 64.93 mL/min Estimated GFR (MDRD) > 60.0 ml/min Glucose 74 (74-106) mg/dL Calcium 8.8 (8.5-10.1) mg/dL Total Bilirubin 0.2 (0.2-1.0) mg/dL AST 42 H (15-37) IU/L ALT 41 (14-63) IU/L Alkaline Phosphatase 141 H (46-116) U/L C-Reactive Protein 3.30 H (0.00-0.90) mg/dL C-React Prot High Sens mg/L Total Protein 6.8 (6.4-8.2) g/dL Albumin 2.8 L (3.4-5.0) g/dL Globulin 4.0 (2.6-4.0) g/dL Albumin/Globulin Ratio 0.7 L (0.9-1.6) Procalcitonin ng/mL Result Diagrams: 05/17/21 05:26 05/17/21 05:26 [place] Results Last 24 hrs: Microbiology 05/15/21 13:53 Aerobic Blood Culture - Preliminary Blood - Venous - Lab Draw NO GROWTH AFTER 1 DAY Anaerobic Blood Culture - Preliminary NO GROWTH AFTER 1 DAY 05/15/21 13:35 Aerobic Blood Culture - Preliminary Blood - Venous NO GROWTH AFTER 1 DAY Anaerobic Blood Culture - Preliminary NO GROWTH AFTER 1 DAY Sepsis Event Note - Evaluation Sepsis Screening Result: No Definite Risk - Focused Exam Vital Signs: Vital Signs Temp Resp BP Pulse Ox 05/17/21 07:00 19 134/72 95 05/17/21 06:00 19 119/63 95 05/17/21 05:00 21 H 141/78 H 96 05/17/21 04:00 97.3 F 19 125/69 95 05/17/21 03:00 23 H 121/67 95 05/17/21 02:00 17 106/64 97 05/17/21 01:00 22 H 112/76 96 05/17/21 00:00 98.2 F 21 H 112/74 97 - Problem List Review Problem List Initiated/Reviewed/Updated: Yes - Plan Plan:: 56 yo female admitted with COVID-19 with acute hypoxic respiratory failure. 1. Hypoxic respiratory failure secondary to COVID-pneumonia: Improved, Vitally stable,95% O2 saturation on HHFNC 45%, will continue to wean as tolerated, may consider de-escalation to MedSurg unit from ICU. Patient was able to prone for [address] yesterday indicated no PE with bilateral COVID infiltrates and reactive mediastinal/hilar adenopathy Treating with day 2/4 remdesivir, dexamethasone, and baricitinib. Patient understands the FDA EUA on baricitinib and patient has consented to its use. Continue to encourage prone position and use I/S 2. Mild anemia: 10.3, may be dilutional, will continue to monitor with daily CBC. 3. Mild thrombocytosis: 487, continue to monitor with daily CBC lovenox 40 for DVT prophylaxis
[2021-05-17] MEDS: Enoxaparin 40 MG/0.4 ML Syringe SUBCUT SCH (16:42)
[2021-05-17] MEDS: REMDESIVIR 100 MG in Sodium Chloride 0.9% 100 ML IV SCH (16:43)
[2021-05-17] MEDS: ClonazePAM 1 MG Tab PO SCH (20:05)
[2021-05-17] MEDS: diphenhydrAMINE 50 MG Cap PO SCH (20:05)
[2021-05-17] MEDS: DESVENLAFAXINE SUCCINATE 100 MG PO SCH (20:08)
[2021-05-18 08:33] LABS: BLOOD UREA NITROGEN,BUN 20 mg/dL (7.0-18.0); CARBON DIOXIDE,CO2 29.3 mmol/L (21.0-32.0); CHLORIDE,CL 98 mmol/L (98-107); GLUCOSE RANDOM 65 mg/dL (74-106); POTASSIUM,K 4.1 mmol/L (3.5-5.1); SODIUM,NA 136 mmol/L (136-145)
[2021-05-18] MEDS: Dexamethasone 4 MG Tab PO SCH (08:52)
--- NOTE | 2021-05-18 13:20 | PCM.PN ---
- General Info Date of Service: 05/18/21 Admission Dx/Problem (Free Text): Admission Diagnosis/Problem Admission Diagnosis/Problem Hypoxia Subjective Update: 56-year-old female admitted for respiratory failure secondary to COVID pneumonia. No overnight events, remains on high flow nasal cannula FiO2 50%. Patient states she feels much better, denies any shortness of breath, chest pain, and was resting comfortably in bed . - Review of Systems General: Reports: No Symptoms HEENT: Reports: No Symptoms Pulmonary: Reports: No Symptoms Cardiovascular: Reports: No Symptoms Gastrointestinal: Reports: No Symptoms Genitourinary: Reports: No Symptoms Musculoskeletal: Reports: No Symptoms Skin: Reports: No Symptoms Neurological: Reports: No Symptoms Psychiatric: Reports: No Symptoms - Patient Data Vitals - Most Recent: Last Vital Signs Temp 97.2 F 05/18/21 12:00 Pulse 85 05/18/21 12:00 Resp 22 H 05/18/21 12:00 BP 123/63 05/18/21 12:00 Pulse Ox 92 L 05/18/21 12:00 Weight - Most Recent: 196 lb 2.113 oz I&O - Last 24 Hours: Intake & Output 05/17/21 05/18/21 05/18/21 22:59 06:59 14:59 Intake Total 800 650 Output Total 700 Balance 800 -50 Lab Results Last 24 Hours: Laboratory Results - last 24 hr 05/18/21 05/18/21 Range/Units 06:58 06:58 WBC 12.67 H (4.0-11.0) K/uL RBC 5.31 (4.30-5.90) M/uL Hgb 11.2 L (12.0-16.0) g/dL Hct 37.3 (36.0-46.0) % MCV 70.2 L (80.0-98.0) fL MCH 21.1 L (27.0-32.0) pg MCHC 30.0 L (31.0-37.0) g/dL RDW Std Deviation 49.1 (28.0-62.0) fl RDW Coeff of Erma 19 H (11.0-15.0) % Plt Count 527 H (150-400) K/uL MPV 9.90 (7.40-12.00) fL Add Manual Diff YES Neutrophils % (Manual) 62 (48.0-80.0) % Lymphocytes % (Manual) 33 (16.0-40.0) % Monocytes % (Manual) 5 (0.0-15.0) % Nucleated RBC % 0.0 /100WBC Absolute Seg Neuts 7.9 H (1.4-5.7) Lymphocytes # (Manual) 4.2 H (0.6-2.4) Monocytes # (Manual) 0.6 (0.0-0.8) Nucleated RBCs # 0 K/uL Platelet Estimate INCREASED Sodium 136 (136-145) mmol/L Potassium 4.1 (3.5-5.1) mmol/L Chloride 98 (98-107) mmol/L Carbon Dioxide 29.3 (21.0-32.0) mmol/L BUN 20 H (7.0-18.0) mg/dL Creatinine 0.7 (0.6-1.0) mg/dL Est Cr Clr Drug Dosing 74.21 mL/min Estimated GFR (MDRD) > 60.0 ml/min Glucose 65 L (74-106) mg/dL Calcium 8.6 (8.5-10.1) mg/dL Total Bilirubin 0.3 (0.2-1.0) mg/dL AST 46 H (15-37) IU/L ALT 50 (14-63) IU/L Alkaline Phosphatase 146 H (46-116) U/L Total Protein 7.2 (6.4-8.2) g/dL Albumin 3.1 L (3.4-5.0) g/dL Globulin 4.1 H (2.6-4.0) g/dL Albumin/Globulin Ratio 0.8 L (0.9-1.6) [place] Results Last 24 Hours: Microbiology 05/15/21 13:53 Aerobic Blood Culture - Preliminary Blood - Venous - Lab Draw NO GROWTH AFTER 2 DAYS Anaerobic Blood Culture - Preliminary NO GROWTH AFTER 2 DAYS 05/15/21 13:35 Aerobic Blood Culture - Preliminary Blood - Venous NO GROWTH AFTER 2 DAYS Anaerobic Blood Culture - Preliminary NO GROWTH AFTER 2 DAYS Med Orders - Current: Current Medications Albuterol/Ipratropium (Albuterol/Ipratropium 4 Gm Inhalation [place]) 1 gm INH Q4H PRN PRN Reason: Dyspnea Last Admin: 05/16/21 08:19 Dose: 1 puff Documented by: Baricitinib (Baricitinib 2 Mg Tab) 4 mg PO Q24H [facility] Last Admin: 05/17/21 16:42 Dose: 4 mg Documented by: Benzonatate (Benzonatate 100 Mg Cap) 100 mg PO Q6H PRN PRN Reason: Cough Last Admin: 05/17/21 08:47 Dose: 100 mg Documented by: Clonazepam (Clonazepam 1 Mg Tab) 1 mg PO BEDTIME [facility] Last Admin: 05/17/21 20:05 Dose: 1 mg Documented by: Dexamethasone (Dexamethasone 4 Mg Tab) 6 mg PO DAILY [facility] Last Admin: 05/18/21 08:52 Dose: 6 mg Documented by: Diphenhydramine HCl (Diphenhydramine 50 Mg Cap) 50 mg PO BEDTIME [facility] Last Admin: 05/17/21 20:05 Dose: 50 mg Documented by: Enoxaparin Sodium (Enoxaparin 40 Mg/0.4 Ml Syringe) 40 mg SUBCUT Q24H [facility] Last Admin: 05/17/21 16:42 Dose: 40 mg Documented by: Guaifenesin/Dextromethorphan (Guaifenesin/Dextromethorphan 100-10 Mg/5 Ml Soln 10 Ml Cup) 10 ml PO Q4H PRN PRN Reason: Cough Last Admin: 05/17/21 08:47 Dose: 10 ml Documented by: Remdesivir 100 mg/ Sodium (Chloride) 100 mls @ 100 mls/hr IV Q24H [facility] Stop: 05/19/21 16:14 Last Infusion: 05/17/21 16:43 Dose: 100 mls/hr Documented by: Desvenlafaxine Succinate Er 100 Mg* *Own Med 1 each PO BEDTIME [facility] Last Admin: 05/17/21 20:08 Dose: 1 each Documented by: Sodium Chloride (Sodium Chloride 0.9% 10 Ml Syringe) 10 ml FLUSH ASDIRECTED PRN PRN Reason: Keep Vein Open Last Admin: 05/15/21 14:00 Dose: 10 ml Documented by: Sodium Chloride (Sodium Chloride 0.9% 2.5 Ml Syringe) 2.5 ml FLUSH ASDIRECTED PRN PRN Reason: Keep Vein Open Last Admin: 05/15/21 14:00 Dose: 2.5 ml Documented by: Sodium Chloride (Sodium Chloride 0.9% 10 Ml Syringe) 10 ml FLUSH ASDIRECTED PRN PRN Reason: Keep Vein Open Last Admin: 05/15/21 14:01 Dose: 10 ml Documented by: Sodium Chloride (Sodium Chloride 0.9% 2.5 Ml Syringe) 2.5 ml FLUSH ASDIRECTED PRN PRN Reason: Keep Vein Open Last Admin: 05/15/21 14:01 Dose: 2.5 ml Documented by: Discontinued Medications Albuterol/Ipratropium (Albuterol/Ipratropium 3.0-0.5 Mg/3 Ml Neb Soln) 3 ml NEB ONETIME ONE Stop: 05/15/21 13:49 Last Admin: 05/15/21 13:53 Dose: 3 ml Documented by: Remdesivir 200 mg/ Sodium (Chloride) 250 mls @ 250 mls/hr IV ONETIME ONE Stop: 05/15/21 15:13 Last Admin: 05/15/21 15:59 Dose: Not Given Documented by: Remdesivir 200 mg/ Sodium (Chloride) 250 mls @ 250 mls/hr IV ONETIME ONE Stop: 05/15/21 15:13 Last Admin: 05/15/21 15:49 Dose: 250 mls/hr Documented by: Iopamidol (Iopamidol 755 Mg/Ml 500 Ml Multipack Bottle) 100 ml IVPUSH ONETIME ONE Stop: 05/15/21 17:31 Last Admin: 05/15/21 17:30 Dose: 100 ml Documented by: Methylprednisolone Sodium Succinate (Methylprednisolone Sodium Succinate 125 Mg/2 Ml Sdv) 125 mg IVPUSH ONETIME ONE Stop: 05/15/21 13:49 Last Admin: 05/15/21 13:53 Dose: 125 mg Documented by: Desvenlafaxine Succinate Er 100 Mg* *Own Med 100 mg PO BEDTIME [facility] Last Admin: 05/16/21 20:36 Dose: 100 mg Documented by: - Exam Quality Assessment: Supplemental Oxygen, DVT Prophylaxis General: Alert, Oriented, Cooperative, No Acute Distress HEENT: Pupils Equal, Pupils Reactive, EOMI Neck: Supple, No JVD. No: Lymphadenopathy Lungs: Clear to Auscultation, Normal Respiratory Effort Cardiovascular: Regular Rate, Regular Rhythm GI/Abdominal Exam: Normal Bowel Sounds, Soft, Non-Tender Extremities: Normal Inspection, Normal Range of Motion, No Pedal Edema, Normal Capillary Refill Peripheral Pulses: 2+: Carotid (L), Carotid (R), Posterior Tibial (L), Posterior Tibial (R) Skin: Warm, Dry, Intact Neurological: No New Focal Deficit Psy/Mental Status: Alert, Normal Affect, Normal Mood - Patient Data Lab Results Last 24 hrs: Laboratory Results - last 24 hr 05/18/21 05/18/21 Range/Units 06:58 06:58 WBC 12.67 H (4.0-11.0) K/uL RBC 5.31 (4.30-5.90) M/uL Hgb 11.2 L (12.0-16.0) g/dL Hct 37.3 (36.0-46.0) % MCV 70.2 L (80.0-98.0) fL MCH 21.1 L (27.0-32.0) pg MCHC 30.0 L (31.0-37.0) g/dL RDW Std Deviation 49.1 (28.0-62.0) fl RDW Coeff of Erma 19 H (11.0-15.0) % Plt Count 527 H (150-400) K/uL MPV 9.90 (7.40-12.00) fL Add Manual Diff YES Neutrophils % (Manual) 62 (48.0-80.0) % Lymphocytes % (Manual) 33 (16.0-40.0) % Monocytes % (Manual) 5 (0.0-15.0) % Nucleated RBC % 0.0 /100WBC Absolute Seg Neuts 7.9 H (1.4-5.7) Lymphocytes # (Manual) 4.2 H (0.6-2.4) Monocytes # (Manual) 0.6 (0.0-0.8) Nucleated RBCs # 0 K/uL Platelet Estimate INCREASED Sodium 136 (136-145) mmol/L Potassium 4.1 (3.5-5.1) mmol/L Chloride 98 (98-107) mmol/L Carbon Dioxide 29.3 (21.0-32.0) mmol/L BUN 20 H (7.0-18.0) mg/dL Creatinine 0.7 (0.6-1.0) mg/dL Est Cr Clr Drug Dosing 74.21 mL/min Estimated GFR (MDRD) > 60.0 ml/min Glucose 65 L (74-106) mg/dL Calcium 8.6 (8.5-10.1) mg/dL Total Bilirubin 0.3 (0.2-1.0) mg/dL AST 46 H (15-37) IU/L ALT 50 (14-63) IU/L Alkaline Phosphatase 146 H (46-116) U/L Total Protein 7.2 (6.4-8.2) g/dL Albumin 3.1 L (3.4-5.0) g/dL Globulin 4.1 H (2.6-4.0) g/dL Albumin/Globulin Ratio 0.8 L (0.9-1.6) Result Diagrams: 05/18/21 06:58 05/18/21 06:58 [place] Results Last 24 hrs: Microbiology 05/15/21 13:53 Aerobic Blood Culture - Preliminary Blood - Venous - Lab Draw NO GROWTH AFTER 2 DAYS Anaerobic Blood Culture - Preliminary NO GROWTH AFTER 2 DAYS 05/15/21 13:35 Aerobic Blood Culture - Preliminary Blood - Venous NO GROWTH AFTER 2 DAYS Anaerobic Blood Culture - Preliminary NO GROWTH AFTER 2 DAYS Sepsis Event Note - Evaluation Sepsis Screening Result: No Definite Risk - Focused Exam Vital Signs: Vital Signs Temp Pulse Resp BP Pulse Ox 05/18/21 12:00 97.2 F 85 22 H 123/63 92 L 05/18/21 08:48 18 97 05/18/21 08:42 96.8 F L 69 18 135/84 98 05/18/21 07:00 19 128/68 95 05/18/21 06:00 18 142/85 H 97 05/18/21 05:00 16 134/70 95 05/18/21 04:00 98.2 F 22 H 134/76 96 05/18/21 03:00 22 H 97/57 L 95 05/18/21 02:00 20 105/68 93 L - Problem List & Annotations (1) Pneumonia due to COVID-19 virus SNOMED Code(s): 561270106518567049 Code(s): U07.1 - COVID-19; J12.82 - PNEUMONIA DUE TO CORONAVIRUS DISEASE 2019 Status: Acute Current Visit: Yes (2) Respiratory failure with hypoxia SNOMED Code(s): 09061068678604209 Code(s): J96.91 - RESPIRATORY FAILURE, UNSPECIFIED WITH HYPOXIA Status: Acute Current Visit: Yes - Problem List Review Problem List Initiated/Reviewed/Updated: Yes - Plan Plan:: 56 yo female admitted with COVID-19 with acute hypoxic respiratory failure. 1. Hypoxic respiratory failure secondary to COVID-pneumonia: Improved, Vitally stable, 95% O2 saturation on 3 L nasal cannula, will continue to wean as tolerated, Continue with treating 4/4 remdesivir, dexamethasone, and baricitinib. Patient understands the FDA EUA on baricitinib and patient has consented to its use. Continue to encourage prone position and use I/S. 2. Mild anemia: 11.2, may be dilutional, will continue to monitor with daily CBC. 3. Mild thrombocytosis: Continues to trend upwards 527, continue to monitor, currently on lovenox 40 for DVT prophylaxis
[2021-05-18] MEDS: Enoxaparin 40 MG/0.4 ML Syringe SUBCUT SCH (15:17)
[2021-05-18] MEDS: REMDESIVIR 100 MG in Sodium Chloride 0.9% 100 ML IV SCH (15:18)
[2021-05-18] MEDS: ClonazePAM 1 MG Tab PO SCH (21:26)
[2021-05-18] MEDS: diphenhydrAMINE 50 MG Cap PO SCH (21:26)
[2021-05-18] MEDS: DESVENLAFAXINE SUCCINATE 100 MG PO SCH (21:35)
[2021-05-19] MEDS: guaiFENesin/Dextromethorphan 100-10 MG/5 ML Soln 10 ML Cup PO PRN (02:50)
[2021-05-19 06:35] LABS: BLOOD UREA NITROGEN,BUN 21 mg/dL (7.0-18.0); CARBON DIOXIDE,CO2 28.5 mmol/L (21.0-32.0); CHLORIDE,CL 99 mmol/L (98-107); GLUCOSE RANDOM 74 mg/dL (74-106); POTASSIUM,K 4.2 mmol/L (3.5-5.1); SODIUM,NA 137 mmol/L (136-145)
[2021-05-19] MEDS: Dexamethasone 4 MG Tab PO SCH (09:27)
--- NOTE | 2021-05-19 15:18 | PCM.DCSUM1 ---
<Stephenie Estrada - Last Filed: 05/19/21 15:19> Discharge Summary - Hospital Course HPI Initial Comments: 56 yo female who presents with ten days of shortness of breath, cough and fevers. She reports testing positive for COVID seven days ago. She has completed a course of ivermectin and dexamethasone. She has not been vaccinated. She was noted to be sating 70% on room air and is requiring high flow NC to keep sats above 90%. CXR reports bilateral infiltrates. Brief History: Patient treated for COVID-pneumonia with remdesivir, baricitinib, dexamethasone, duo nebs. Has 6 days of steroids remaining. Will be sent home on home oxygen. Patient is to closely follow-up with PCP postdischarge. Diagnosis: Stroke: No - Discharge Data Discharge Date: 05/19/21 Discharge Disposition: Home, Self-Care 01 Event(s) Leading to Patient's *Q: f/u with PCP closely post hospital discharge Condition: Good - Referral to Home Health Primary Care Physician: PCP None - Discharge Diagnosis/Problem(s) (1) Pneumonia due to COVID-19 virus SNOMED Code(s): 874716860698518229 ICD Code: U07.1 - COVID-19; J12.82 - PNEUMONIA DUE TO CORONAVIRUS DISEASE 2019 Status: Acute (2) Respiratory failure with hypoxia SNOMED Code(s): 18498127349485608 ICD Code: J96.91 - RESPIRATORY FAILURE, UNSPECIFIED WITH HYPOXIA Status: Acute - Patient Instructions Diet: Regular Diet as Tolerated Showering/Bathing: May Shower Notify Provider of: Fever, Increased Pain, Swelling and Redness, Nausea and/or Vomiting Other/Special Instructions: Please return to hospital in the event of any high fevers, shortness of breath, difficulty breathing, leg swelling. - Discharge Plan *PRESCRIPTION DRUG MONITORING PROGRAM REVIEWED*: Not Applicable *COPY OF PRESCRIPTION DRUG MONITORING REPORT IN PATIENT RYAN: Not Applicable Prescriptions/Med Rec: dexAMETHasone [Dexamethasone] 6 mg PO DAILY 6 Days #6 tablet Home Medications: Home Meds Amphetamine/Dextroamphetamine [Adderall XR] 20 mg PO TID PRN 05/15/21 [History] Desvenlafaxine Succinate [Desvenlafaxine Succinate ER] 100 mg PO DAILY 05/15/21 [History] clonazePAM [Clonazepam] 1 mg PO BEDTIME 05/15/21 [History] ARIPiprazole [Abilify] 5 mg PO DAILY 05/16/21 [History] Albuterol Sulfate 2.5 mg INH Q4H PRN 05/16/21 [History] Rizatriptan Benzoate [Rizatriptan] 10 mg PO ONETIME PRN 05/16/21 [History] Albuterol/Ipratropium [Combivent Respimat] 1 gm INH Q4H PRN inhaler 05/19/21 [Rx] Dextromethorphan/guaiFENesin [Robitussin DM] 10 ml PO Q4H PRN cup 05/19/21 [Rx] dexAMETHasone [Dexamethasone] 6 mg PO DAILY 6 Days #6 tablet 05/19/21 [Rx] Oxygen Therapy Mode: Nasal Cannula Patient Handouts: COVID-19 Frequently Asked Questions, COVID-19 Vaccine Information, Home Oxygen Use, Adult, COVID-19: How to Protect Yourself and Others - [facility], COVID-19 Quarantine vs. Isolation - [facility] (01/31/2021), Dexamethasone tablets Referrals: Cornel John MD [Ordering Only Provider] - 05/27/21 10:00 am (Your previous provider is no longer praticing at [place]; we have made an appointment with another provider there. Please arrive 15 minutes early with your ID and wearing a face covering.) - Discharge Summary/Plan Comment DC Time >30 min.: No Total # of Minutes for Discharge Time: 30 min Discharge Summary/Plan Comment: Patient was discharged home today with home oxygen, 6 days of 6 mg dexamethasone p.o. daily. Patient is to follow-up closely with PCP postdischarge. Has been instructed to return to hospital in the event he develop any chest pain, shortness of breath, difficulty breathing, leg swelling or pain. - Patient Data Vitals - Most Recent: Last Vital Signs Temp 97.6 F 05/19/21 12:08 Pulse 67 05/19/21 12:08 Resp 15 05/19/21 12:08 BP 125/68 05/19/21 12:08 Pulse Ox 96 05/19/21 12:08 Weight - Most Recent: 88.964 kg I&O - Last 24 hours: Intake & Output 05/19/21 05/19/21 05/19/21 06:59 14:59 22:59 Intake Total 780 Output Total 600 Balance 780 -600 Lab Results - Last 24 hrs: Laboratory Results - last 24 hr 05/19/21 05/19/21 Range/Units 05:31 05:31 WBC 12.50 H (4.0-11.0) K/uL RBC 5.28 (4.30-5.90) M/uL Hgb 11.0 L (12.0-16.0) g/dL Hct 37.2 (36.0-46.0) % MCV 70.5 L (80.0-98.0) fL MCH 20.8 L (27.0-32.0) pg MCHC 29.6 L (31.0-37.0) g/dL RDW Std Deviation 48.8 (28.0-62.0) fl RDW Coeff of Erma 19 H (11.0-15.0) % Plt Count 528 H (150-400) K/uL MPV 10.00 (7.40-12.00) fL Add Manual Diff YES Neutrophils % (Manual) 53 (48.0-80.0) % Lymphocytes % (Manual) 40 (16.0-40.0) % Monocytes % (Manual) 6 (0.0-15.0) % Eosinophils % (Manual) 1 (0.0-7.0) % Nucleated RBC % 0.0 /100WBC Absolute Seg Neuts 6.6 H (1.4-5.7) Lymphocytes # (Manual) 5.0 H (0.6-2.4) Monocytes # (Manual) 0.8 (0.0-0.8) Eosinophils # (Manual) 0.1 (0.0-0.7) Nucleated RBCs # 0 K/uL Sodium 137 (136-145) mmol/L Potassium 4.2 (3.5-5.1) mmol/L Chloride 99 (98-107) mmol/L Carbon Dioxide 28.5 (21.0-32.0) mmol/L BUN 21 H (7.0-18.0) mg/dL Creatinine 0.8 (0.6-1.0) mg/dL Est Cr Clr Drug Dosing 64.93 mL/min Estimated GFR (MDRD) > 60.0 ml/min Glucose 74 (74-106) mg/dL Calcium 8.6 (8.5-10.1) mg/dL Total Bilirubin 0.3 (0.2-1.0) mg/dL AST 24 (15-37) IU/L ALT 43 (14-63) IU/L Alkaline Phosphatase 130 H (46-116) U/L Total Protein 6.9 (6.4-8.2) g/dL Albumin 3.1 L (3.4-5.0) g/dL Globulin 3.8 (2.6-4.0) g/dL Albumin/Globulin Ratio 0.8 L (0.9-1.6) ALETA Results - Last 24 hrs: Microbiology 05/15/21 13:53 Aerobic Blood Culture - Preliminary Blood - Venous - Lab Draw NO GROWTH AFTER 4 DAYS Anaerobic Blood Culture - Preliminary NO GROWTH AFTER 4 DAYS 05/15/21 13:35 Aerobic Blood Culture - Preliminary Blood - Venous NO GROWTH AFTER 4 DAYS Anaerobic Blood Culture - Preliminary NO GROWTH AFTER 4 DAYS Med Orders - Current: Current Medications Albuterol/Ipratropium (Albuterol/Ipratropium 4 Gm Inhalation [place]) 1 gm INH Q4H PRN PRN Reason: Dyspnea Last Admin: 05/16/21 08:19 Dose: 1 puff Documented by: Baricitinib (Baricitinib 2 Mg Tab) 4 mg PO Q24H SANJU Last Admin: 05/18/21 15:16 Dose: 4 mg Documented by: Benzonatate (Benzonatate 100 Mg Cap) 100 mg PO Q6H PRN PRN Reason: Cough Last Admin: 05/17/21 08:47 Dose: 100 mg Documented by: Clonazepam (Clonazepam 1 Mg Tab) 1 mg PO BEDTIME SANJU Last Admin: 05/18/21 21:26 Dose: 1 mg Documented by: Dexamethasone (Dexamethasone 4 Mg Tab) 6 mg PO DAILY SANJU Last Admin: 05/19/21 09:27 Dose: 6 mg Documented by: Diphenhydramine HCl (Diphenhydramine 50 Mg Cap) 50 mg PO BEDTIME SANJU Last Admin: 05/18/21 21:26 Dose: 50 mg Documented by: Enoxaparin Sodium (Enoxaparin 40 Mg/0.4 Ml Syringe) 40 mg SUBCUT Q24H SANJU Last Admin: 05/18/21 15:17 Dose: 40 mg Documented by: Guaifenesin/Dextromethorphan (Guaifenesin/Dextromethorphan 100-10 Mg/5 Ml Soln 10 Ml Cup) 10 ml PO Q4H PRN PRN Reason: Cough Last Admin: 05/19/21 02:50 Dose: 10 ml Documented by: Remdesivir 100 mg/ Sodium (Chloride) 100 mls @ 100 mls/hr IV Q24H [facility], [facility] Stop: 05/19/21 16:14 Last Admin: 05/18/21 15:18 Dose: 100 mls/hr Documented by: Desvenlafaxine Succinate Er 100 Mg* *Own Med 1 each PO BEDTIME SANJU Last Admin: 05/18/21 21:35 Dose: 1 each Documented by: Sodium Chloride (Sodium Chloride 0.9% 10 Ml Syringe) 10 ml FLUSH ASDIRECTED PRN PRN Reason: Keep Vein Open Last Admin: 05/15/21 14:00 Dose: 10 ml Documented by: Sodium Chloride (Sodium Chloride 0.9% 2.5 Ml Syringe) 2.5 ml FLUSH ASDIRECTED PRN PRN Reason: Keep Vein Open Last Admin: 05/15/21 14:00 Dose: 2.5 ml Documented by: Sodium Chloride (Sodium Chloride 0.9% 10 Ml Syringe) 10 ml FLUSH ASDIRECTED PRN PRN Reason: Keep Vein Open Last Admin: 05/15/21 14:01 Dose: 10 ml Documented by: Sodium Chloride (Sodium Chloride 0.9% 2.5 Ml Syringe) 2.5 ml FLUSH ASDIRECTED PRN PRN Reason: Keep Vein Open Last Admin: 05/15/21 14:01 Dose: 2.5 ml Documented by: Discontinued Medications Albuterol/Ipratropium (Albuterol/Ipratropium 3.0-0.5 Mg/3 Ml Neb Soln) 3 ml NEB ONETIME ONE Stop: 05/15/21 13:49 Last Admin: 05/15/21 13:53 Dose: 3 ml Documented by: Remdesivir 200 mg/ Sodium (Chloride) 250 mls @ 250 mls/hr IV ONETIME ONE Stop: 05/15/21 15:13 Last Admin: 05/15/21 15:59 Dose: Not Given Documented by: Remdesivir 200 mg/ Sodium (Chloride) 250 mls @ 250 mls/hr IV ONETIME ONE Stop: 05/15/21 15:13 Last Admin: 05/15/21 15:49 Dose: 250 mls/hr Documented by: Iopamidol (Iopamidol 755 Mg/Ml 500 Ml Multipack Bottle) 100 ml IVPUSH ONETIME ONE Stop: 05/15/21 17:31 Last Admin: 05/15/21 17:30 Dose: 100 ml Documented by: Methylprednisolone Sodium Succinate (Methylprednisolone Sodium Succinate 125 Mg/2 Ml Sdv) 125 mg IVPUSH ONETIME ONE Stop: 05/15/21 13:49 Last Admin: 05/15/21 13:53 Dose: 125 mg Documented by: Desvenlafaxine Succinate Er 100 Mg* *Own Med 100 mg PO BEDTIME SANJU Last Admin: 05/16/21 20:36 Dose: 100 mg Documented by: <Jaclyn Roman - Last Filed: 05/20/21 13:58> Discharge Summary - Hospital Course HPI Initial Comments: I have seen and evaluated the patient and agree with the residents note unless specified in my note I - Referral to Home Health Primary Care Physician: PCP None - Patient Data Vitals - Most Recent: Last Vital Signs Temp 36.4 C 05/19/21 12:08 Pulse 67 05/19/21 12:08 Resp 15 05/19/21 12:08 BP 125/68 05/19/21 12:08 Pulse Ox 96 05/19/21 12:08 ALETA Results - Last 24 hrs: Microbiology 05/15/21 13:53 Aerobic Blood Culture - Final Blood - Venous - Lab Draw NO GROWTH AFTER 5 DAYS Anaerobic Blood Culture - Final NO GROWTH AFTER 5 DAYS 05/15/21 13:35 Aerobic Blood Culture - Final Blood - Venous NO GROWTH AFTER 5 DAYS Anaerobic Blood Culture - Final NO GROWTH AFTER 5 DAYS Med Orders - Current: Current Medications Discontinued Medications Albuterol/Ipratropium (Albuterol/Ipratropium 3.0-0.5 Mg/3 Ml Neb Soln) 3 ml NEB ONETIME ONE Stop: 05/15/21 13:49 Last Admin: 05/15/21 13:53 Dose: 3 ml Documented by: Albuterol/Ipratropium (Albuterol/Ipratropium 4 Gm Inhalation [place]) 1 gm INH Q4H PRN PRN Reason: Dyspnea Last Admin: 05/16/21 08:19 Dose: 1 puff Documented by: Baricitinib (Baricitinib 2 Mg Tab) 4 mg PO Q24H [facility], [facility] Last Admin: 05/18/21 15:16 Dose: 4 mg Documented by: Benzonatate (Benzonatate 100 Mg Cap) 100 mg PO Q6H PRN PRN Reason: Cough Last Admin: 05/17/21 08:47 Dose: 100 mg Documented by: Clonazepam (Clonazepam 1 Mg Tab) 1 mg PO BEDTIME [facility] Last Admin: 05/18/21 21:26 Dose: 1 mg Documented by: Dexamethasone (Dexamethasone 4 Mg Tab) 6 mg PO DAILY [facility] Last Admin: 05/19/21 09:27 Dose: 6 mg Documented by: Diphenhydramine HCl (Diphenhydramine 50 Mg Cap) 50 mg PO BEDTIME [facility] Last Admin: 05/18/21 21:26 Dose: 50 mg Documented by: Enoxaparin Sodium (Enoxaparin 40 Mg/0.4 Ml Syringe) 40 mg SUBCUT Q24H [facility] Last Admin: 05/19/21 15:31 Dose: 40 mg Documented by: Guaifenesin/Dextromethorphan (Guaifenesin/Dextromethorphan 100-10 Mg/5 Ml Soln 10 Ml Cup) 10 ml PO Q4H PRN PRN Reason: Cough Last Admin: 05/19/21 02:50 Dose: 10 ml Documented by: Remdesivir 100 mg/ Sodium (Chloride) 100 mls @ 100 mls/hr IV Q24H [facility] Stop: 05/19/21 16:14 Last Admin: 05/19/21 15:30 Dose: 100 mls/hr Documented by: Remdesivir 200 mg/ Sodium (Chloride) 250 mls @ 250 mls/hr IV ONETIME ONE Stop: 05/15/21 15:13 Last Admin: 05/15/21 15:59 Dose: Not Given Documented by: Remdesivir 200 mg/ Sodium (Chloride) 250 mls @ 250 mls/hr IV ONETIME ONE Stop: 05/15/21 15:13 Last Admin: 05/15/21 15:49 Dose: 250 mls/hr Documented by: Iopamidol (Iopamidol 755 Mg/Ml 500 Ml Multipack Bottle) 100 ml IVPUSH ONETIME ONE Stop: 05/15/21 17:31 Last Admin: 05/15/21 17:30 Dose: 100 ml Documented by: Methylprednisolone Sodium Succinate (Methylprednisolone Sodium Succinate 125 Mg/2 Ml Sdv) 125 mg IVPUSH ONETIME ONE Stop: 05/15/21 13:49 Last Admin: 05/15/21 13:53 Dose: 125 mg Documented by: Desvenlafaxine Succinate Er 100 Mg* *Own Med 100 mg PO BEDTIME SANJU Last Admin: 05/16/21 20:36 Dose: 100 mg Documented by: Desvenlafaxine Succinate Er 100 Mg* *Own Med 1 each PO BEDTIME [facility] Last Admin: 05/18/21 21:35 Dose: 1 each Documented by: Sodium Chloride (Sodium Chloride 0.9% 10 Ml Syringe) 10 ml FLUSH ASDIRECTED PRN PRN Reason: Keep Vein Open Last Admin: 05/15/21 14:00 Dose: 10 ml Documented by: Sodium Chloride (Sodium Chloride 0.9% 2.5 Ml Syringe) 2.5 ml FLUSH ASDIRECTED PRN PRN Reason: Keep Vein Open Last Admin: 05/15/21 14:00 Dose: 2.5 ml Documented by: Sodium Chloride (Sodium Chloride 0.9% 10 Ml Syringe) 10 ml FLUSH ASDIRECTED PRN PRN Reason: Keep Vein Open Last Admin: 05/15/21 14:01 Dose: 10 ml Documented by: Sodium Chloride (Sodium Chloride 0.9% 2.5 Ml Syringe) 2.5 ml FLUSH ASDIRECTED PRN PRN Reason: Keep Vein Open Last Admin: 05/15/21 14:01 Dose: 2.5 ml Documented by:
[2021-05-19] MEDS: REMDESIVIR 100 MG in Sodium Chloride 0.9% 100 ML IV SCH (15:30)
[2021-05-19] MEDS: Enoxaparin 40 MG/0.4 ML Syringe SUBCUT SCH (15:31)
== END 2021-05-19 16:35 | disposition home or self-care (01) | DRG 177 ==
LOC: MW.ED 13:23 → MW.MS 15:13 → UNDOADMIN 15:37 → MW.ICU 16:27 → MW.MS 05-18 07:40
PROVIDERS: ADMIT Internal Medicine; ATTEND Internal Medicine
PROC: 8E0ZXY6 Isolation (ICD-10-PCS; principal; 2021-05-15)
PROC: XW033E5 Introduction of Remdesivir Anti-infective into Peripheral Vein, Percutaneous Approach, New Technology Group 5 (ICD-10-PCS; 2021-05-15)
PROC: 3E0333Z Introduction of Anti-inflammatory into Peripheral Vein, Percutaneous Approach (ICD-10-PCS; 2021-05-15)
PROC: XW0DXM6 Introduction of Baricitinib into Mouth and Pharynx, External Approach, New Technology Group 6 (ICD-10-PCS; 2021-05-15)
DX: U07.1 COVID-19 (principal); J12.82 Pneumonia due to coronavirus disease 2019; J96.01 Acute respiratory failure with hypoxia; D64.9 Anemia, unspecified; D75.839 Thrombocytosis, unspecified
CPT/HCPCS: 0240U; 36415; 36600; 71045; 71045-26; 71275; 71275-26; 80053; 82248; 82803; 83605; 83735; 84145; 84484; 85025; 86140; 86141; 87040; 93005; 96374; 99285-25; A9270-GY; J1650; J2930; J7050; J7620-GY; J8540; Q9967